=== PATIENT | male | born 1950 | race Caucasian/White ===

== ENCOUNTER 2016-11-07 10:35 | Emergency (ER) | payer MEDICARE ==
[~2016-11-07] VITALS: Ht 170.2 cm; Wt 91.6 kg
[~2016-11-07 10:35] MED LIST: ASPI-482 PO; CARV12.52 PO; ENAL5TAB PO; HYDR25TA9 PO; LOVA40TA2 PO; OXYC-323 PO; TAMS0.4C2 PO; TAMS0.4C97 PO
[2016-11-07] MEDS ORDERED: IV NORMAL SALINE 500ML BAG 500 ML IV ONE (12:15)
--- NOTE | 2016-11-07 12:26 | PHYS DOC ---
Past Medical History Past Medical History: CAD, High Cholesterol, Heart Disease, Hypertension, ND, Other Additional Past Medical Histor: prostate problem Past Surgical History: Angioplasty, Coronary Bypass Surgery Additional Past Surgical Histo: multiple stents placed, HEART CATH, ANGIOPLASTY Alcohol Use: None Drug Use: None Adult General Chief Complaint Chief Complaint: COUGH HPI HPI Patient is a 66 year old male complaining of being sick for about 6 days. He has had diarrhea frequently, no vomiting but has had anorexia. He's been coughing like crazy. He is not really short of breath. Denies chest pain. Today he had a spell where he was very sweaty and felt faint. He was concerned because he's had a three-vessel CABG in about 2007. 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 He takes one for cholesterol, a water pill, 2 blood pressure medicines, and aspirin 81 mg. Review of Systems Review of Systems Constitutional: He has not particularly had fever or chills. Eyes: Denies change in visual acuity, redness, or eye pain [] HENT: Denies nasal congestion or sore throat [] Respiratory: As in history of present illness Cardiovascular: Denies chest pain GI: As in history of present illness : Denies dysuria or hematuria [] Musculoskeletal: Denies back pain or joint pain [] Integument: Denies rash or skin lesions [] Neurologic: Denies headache, focal weakness or sensory changes [] Current Medications Current Medications Current Medications Medications (Trade) Dose Ordered Sig/Ijeoma Start Time Stop Time Status Last Admin Dose Admin Potassium Chloride (KCl Oral Soln) 40 meq 1X ONCE 11/07/16 14:00 11/07/16 14:01 DC 11/07/16 14:08 40 MEQ Sodium Chloride (Iv Sodium Chloride 0.9% 500ml Bag) 500 ml @ 500 mls/hr 1X ONCE 11/07/16 12:15 11/07/16 13:14 DC 11/07/16 12:59 500 MLS/HR Allergies Allergies Allergies Coded Allergies Type Severity Reaction Last Updated Verified No Known Drug Allergies 12/17/13 No Physical Exam Physical Exam Constitutional: Well developed, well nourished, no acute distress, non-toxic appearance. No cough or dyspnea noted. HENT: Normocephalic, atraumatic, bilateral external ears normal, nose normal. [ ] Eyes: conjunctiva normal, no discharge. [] Neck: Normal range of motion, no stridor. [] Cardiovascular:Heart rate regular rhythm, no murmur [] Lungs & Thorax: Bilateral breath sounds clear to auscultation [] Abdomen: Bowel sounds normal, soft, no tenderness, no masses, no pulsatile masses. [] Skin: Warm, dry, no erythema, no rash. [] Extremities: No tenderness, no cyanosis, no clubbing, ROM intact, no edema. [] Neurologic: Alert and oriented X 3, normal motor function, normal sensory function, no focal deficits noted. [] Current Patient Data Vital Signs Vital Signs Date Time Temp Pulse Resp B/P Pulse Ox O2 Delivery O2 Flow Rate FiO2 11/07/16 13:00 62 21 90/63 94 11/07/16 11:30 Room Air 11/07/16 11:12 97.8 97.8 Lab Values Laboratory Tests Test 11/07/16 11:20 11/07/16 13:42 White Blood Count 5.9x10^3/uL (4.0-11.0) Red Blood Count 5.08x10^6/uL (4.30-5.70) Hemoglobin 16.2g/dL (13.0-17.5) Hematocrit 46.1% (39.0-53.0) Mean Corpuscular Volume 91fL (79-100) Mean Corpuscular Hemoglobin 32pg (25-35) Mean Corpuscular Hemoglobin Concent 35g/dL (31-37) Red Cell Distribution Width 13.4% (11.5-14.5) Platelet Count 240x10^3/uL (140-400) Neutrophils (%) (Auto) 62% (31-73) Lymphocytes (%) (Auto) 22% (24-48) L Monocytes (%) (Auto) 11% (0-9) H Eosinophils (%) (Auto) 4% (0-3) H Basophils (%) (Auto) 0% (0-3) Neutrophils # (Auto) 3.7x10^3uL (1.8-7.7) Lymphocytes # (Auto) 1.3x10^3/uL (1.0-4.8) Monocytes # (Auto) 0.7x10^3/uL (0.0-1.1) Eosinophils # (Auto) 0.2x10^3/uL (0.0-0.7) Basophils # (Auto) 0.0x10^3/uL (0.0-0.2) Sodium Level 141mmol/L (136-145) Potassium Level 3.1mmol/L (3.5-5.1) L Chloride Level 101mmol/L (98-107) Carbon Dioxide Level 29mmol/L (21-32) Anion Gap 11 (6-14) Blood Urea Nitrogen 16mg/dL (8-26) Creatinine 1.3mg/dL (0.7-1.3) Estimated GFR (Cockcroft-Gault) 55.4 Glucose Level 128mg/dL (70-99) H Calcium Level 8.7mg/dL (8.5-10.1) Magnesium Level 1.9mg/dL (1.8-2.4) Total Bilirubin 0.4mg/dL (0.2-1.0) Direct Bilirubin < 0.1mg/dL (0.0-0.2) Aspartate Amino Transferase (AST) 30U/L (15-37) Alanine Aminotransferase (ALT) 33U/L (16-63) Alkaline Phosphatase 61U/L (46-116) Creatine Kinase 95U/L (39-308) Creatine Kinase MB (Mass) < 0.5ng/mL (0.0-3.6) Creatine Kinase MB Relative Index % (0-4) Troponin I Quantitative < 0.017ng/mL (0.000-0.055) JF-Nqh-C-Type Natriuretic Peptide 127pg/mL (0-124) H Total Protein 7.6g/dL (6.4-8.2) Albumin 3.5g/dL (3.4-5.0) Urine Collection Type Unknown Urine Color Jeannie Urine Clarity Clear Urine pH 6.0 Urine Specific [place] 1.025 Urine Protein Negativemg/dL (NEG-TRACE) Urine Glucose (UA) Negativemg/dL (NEG) Urine Ketones (Stick) Negativemg/dL (NEG) Urine Blood Negative (NEG) Urine Nitrite Negative (NEG) Urine Bilirubin Small (NEG) Urine Urobilinogen Dipstick 0.2mg/dL (0.2 mg/dL) Urine Leukocyte Esterase Negative (NEG) Urine RBC 0/HPF (0-2) Urine WBC 1-4/HPF (0-4) Urine Bacteria 0/HPF (0-FEW) Urine Hyaline Casts Many/HPF Urine Mucus Marked/LPF Laboratory Tests 11/07/16 11:20 Laboratory Tests 11/07/16 11:20 EKG EKG 12-lead EKG read by me. Sinus rhythm. Heart rate 64. There are no acute ST or T wave changes indicative of ischemia or infarction. No STEMI. 1234 [] Radiology/Procedures Radiology/Procedures Chest x-ray read by the radiologist no acute findings. [] Course & Med Decision Making Course & Med Decision Making Pertinent Labs and Imaging studies reviewed. (See chart for details) 66-year-old male with a history of coronary artery disease and bypass presents with about a 6 day history of mostly diarrhea and cough. Today he had episode of diaphoresis and lightheadedness, he may be a bit dehydrated. Advised him that we will start with some testing and some IV fluids and he is agreeable to that plan. Labs remarkable for mild hypokalemia and mildly dehydrated. Patient had 500 mL NS IV in the ED. He had no vomiting or diarrhea here. I discussed with the patient plenty of fluids, bananas for potassium, Gatorade, rest until improved. [] Dragon Disclaimer Dragon Disclaimer This electronic medical record was generated, in whole or in part, using a voice recognition dictation system. Departure Departure Impression: Primary Impression: Viral gastroenteritis Additional Impression: Mild dehydration Disposition: 01 HOME, SELF-CARE Condition: STABLE Referrals: NO PCP (PCP) Patient Instructions: Viral Gastroenteritis, [id number] Additional Instructions: Drink plenty of fluids, Gatorade, eat bananas to replace potassium. Problem Qualifiers HORACIO DOUGLAS MD Nov 07, 2016 12:26
[2016-11-07 12:27] LABS: BASO % 0 % (0-3); EOS % 4 % (0-3); HEMATOCRIT 46.1 % (39.0-53.0); HEMOGLOBIN 16.2 g/dL (13.0-17.5); LYMPH # 1.3 x10^3/uL (1.0-4.8); LYMPH % 22 % (24-48); MEAN CORPUSCULAR HEMOGLOBIN 32 pg (25-35); MEAN CORPUSCULAR HGB CONC 35 g/dL (31-37); MEAN CORPUSCULAR VOLUME 91 fL (79-100); MONO % 11 % (0-9); NEUT % 62 % (31-73); PLATELET COUNT 240 x10^3/uL (140-400); RED BLOOD COUNT 5.08 x10^6/uL (4.30-5.70); RED CELL DISTRIBUTION WIDTH 13.4 % (11.5-14.5); WHITE BLOOD COUNT 5.9 x10^3/uL (4.0-11.0)
--- NOTE | 2016-11-07 12:33 | RAD ---
Indication: Cough. Time of exam 12:12 PM Correlation is made with prior study 10/10/2011. Changes of median sternotomy and CABG are noted. Lungs do show some hyperinflation. The pulmonary vascularity is normal. No infiltrates are detected. No effusion or pneumothorax is seen. Impression: Status post CABG and hyperinflation. No acute feature is detected.
[2016-11-07 12:47] LABS: BLOOD UREA NITROGEN 16 mg/dL (8-26); CALCIUM 8.7 mg/dL (8.5-10.1); CREATININE 1.3 mg/dL (0.7-1.3); GLUCOSE 128 mg/dL (70-99)
[2016-11-07 12:48] LABS: ANION GAP 11 (6-14); CARBON DIOXIDE 29 mmol/L (21-32); CHLORIDE 101 mmol/L (98-107); GFR 55.4; POTASSIUM 3.1 mmol/L (3.5-5.1); SODIUM 141 mmol/L (136-145)
[2016-11-07 12:53] LABS: ALBUMIN 3.5 g/dL (3.4-5.0); ALK PHOS 61 U/L (46-116); ALT (SGPT) 33 U/L (16-63); AST (SGOT) 30 U/L (15-37); DIRECT BILIRUBIN < 0.1 mg/dL (0.0-0.2); MAGNESIUM 1.9 mg/dL (1.8-2.4); TOTAL BILIRUBIN 0.4 mg/dL (0.2-1.0); TOTAL PROTEIN 7.6 g/dL (6.4-8.2)
[2016-11-07 13:12] LABS: CKMB MASS < 0.5 ng/mL (0.0-3.6); CREATINE KINASE 95 U/L (39-308)
[2016-11-07 13:58] LABS: BILIRUBIN,URINE SMALL (NEG); GLUCOSE,URINE NEGATIVE (NEG); NITRITE,URINE NEGATIVE (NEG); PROTEIN,URINE NEGATIVE (NEG-TRACE); UROBILINOGEN,URINE 0.2 mg/dL (0.2 mg/dL)
[2016-11-07 14:00] VITALS: BP 121/67
[2016-11-07] MEDS ORDERED: POTASSIUM CHLORIDE 20 MEQ/15 ML ORAL LIQUID. PO ONE (14:00)
[2016-11-07 14:10] LABS: BACTERIA,URINE 0 /HPF (0-FEW); RBC,URINE 0 /HPF (0-2)
--- NOTE | 2016-11-08 06:01 | EKG ---
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
== END 2016-11-07 14:20 | disposition home or self-care (01) ==
LOC: ER 10:35
DX: A08.4 Viral intestinal infection, unspecified (principal); E86.0 Dehydration; I25.2 Old myocardial infarction; I10 Essential (primary) hypertension; I25.10 Atherosclerotic heart disease of native coronary artery without angina pectoris; E78.00 Pure hypercholesterolemia, unspecified; Z95.1 Presence of aortocoronary bypass graft
CPT/HCPCS: 36415; 71020; 80048; 80076; 81001; 82553; 83735; 83880; 84484; 85027; 93005; 96360; 99285; J7040

== ENCOUNTER → 2017-08-07 | Outpatient (CLI) | payer MEDICARE ==
[2017-08-07 14:59] LABS: FOLATE 19.08 ng/ml (3.2-20.0)
[2017-08-09 13:22] LABS: ALPHA 1 0.2 g/dL (0.0-0.4); ALPHA 2 0.7 g/dL (0.4-1.0); BETA 1.3 g/dL (0.7-1.3); GAMMA 1.1 g/dL (0.4-1.8); M-SPIKE Not Observed g/dL (Not Observed); PROTEIN TOTAL 7.2 g/dL (6.0-8.5)
== END | disposition home or self-care (01) ==
LOC: LAB 14:03
PROVIDERS: ATTEND Psychiatry & Neurology Neurology with Special Qualifications in Child Neurology
DX: R26.9 Unspecified abnormalities of gait and mobility (principal); R41.3 Other amnesia; R20.0 Anesthesia of skin
CPT/HCPCS: 36415; 82607; 82746; 84165; 84443; 85651

== ENCOUNTER → 2017-08-15 | Outpatient (CLI) | payer MEDICARE ==
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
== END | disposition home or self-care (01) ==
LOC: KCIC MRI 09:11
PROVIDERS: ATTEND Psychiatry & Neurology Neurology with Special Qualifications in Child Neurology
DX: S09.8XXD Other specified injuries of head, subsequent encounter (principal); R32 Unspecified urinary incontinence; R41.3 Other amnesia; R20.0 Anesthesia of skin; X58.XXXD Exposure to other specified factors, subsequent encounter
CPT/HCPCS: 70551

== ENCOUNTER → 2018-10-29 | Outpatient (CLI) | payer MEDICARE ==
[~2018-10-29] MED LIST changes: +CARV12.511 PO; -CARV12.52 PO; +HYDR-2145 PO; -HYDR25TA9 PO; -OXYC-323 PO; +OXYC1TAB15 PO; +REGADENOSON 0.4 MG/5 ML DISP.SYRIN. IV ONE
--- NOTE | 2018-10-29 11:32 | CARD ---
MR#: [id number] Date of Study: 10/29/2018 Ordering Physician: RUBY KERR, Referring Physician: RUBY KERR Tech: Jacklyn Alfred RDCS APPROVED REPORT EXAM: Two-dimensional and M-mode echocardiogram with Doppler and color Doppler. Other Information Quality : GoodHR: 78bpm Rhythm : PVC's INDICATION CAD 2D DIMENSIONS RVDd2.8 (2.9-3.5cm)Left Atrium(2D)4.3 (1.6-4.0cm) IVSd1.0 (0.7-1.1cm)Aortic Root(2D)3.4 (2.0-3.7cm) LVDd6.2 (3.9-5.9cm)LVOT Diameter2.1 (1.8-2.4cm) PWd0.9 (0.7-1.1cm)LVDs5.1 (2.5-4.0cm) FS (%) 18.0 %SV71.4 ml LVEF(%)36.7 (>50%) M-Mode DIMENSIONS Left Atrium(MM)4.58 (2.5-4.0cm)Aortic Root3.51 (2.2-3.7cm) Aortic Valve AoV Peak Valentín.101.8cm/sAoV VTI18.1cm AO Peak GR.4.1mmHgLVOT Peak Valentín.90.0cm/s AO Mean GR.2mmHgAVA (VMAX)3.07cm2 ARSALAN (VTI)3.00cm2 Mitral Valve MV E Ktoqvofx35.9cm/sMV DECEL VHZF228zn MV A Okroitrt44.8cm/sE/A Ratio0.9 MV A Ephguvro510ul Pulmonary Valve PV Peak Rpsluixx788.9cm/s LEFT VENTRICLE The Left Ventricle is mildly dilated. There is normal left ventricular wall thickness. The systolic f unction is moderately impaired. The Ejection Fraction is 40%. There is global hypokinesis of the left ventricle. Septal motion suggestive of conduction defect. Transmitral Doppler flow pattern is Grade I-abnormal relaxation pattern. RIGHT VENTRICLE The right ventricle is normal size. There is normal right ventricular wall thickness. The right ventr icular systolic function is normal. ATRIA The left atrium is mildly dilated. The right atrium size is normal. The interatrial septum is intact with no evidence for an atrial septal defect or patent foramen ovale as noted on 2-D or Doppler imagi ng. AORTIC VALVE The aortic valve is mildly thickened. The aortic valve is trileaflet. Doppler and Color Flow revealed no significant aortic regurgitation. There is no significant aortic valvular stenosis. MITRAL VALVE The mitral valve is normal in structure and function. There is no evidence of mitral valve prolapse. There is no mitral valve stenosis. Doppler and Color-flow revealed mild mitral regurgitation. TRICUSPID VALVE The tricuspid valve is normal in structure and function. Doppler and Color Flow revealed no tricuspid valve regurgitation noted. There is no tricuspid valve prolapse or vegetation. There is no tricuspid valve stenosis. PULMONIC VALVE The pulmonary valve is normal in structure and function. Doppler and Color Flow revealed trace pulmon ic valvular regurgitation. There is no pulmonic valvular stenosis. GREAT VESSELS The aortic root is normal in size. The ascending aorta is normal in size. The IVC is normal in size a nd collapses >50% with inspiration. PERICARDIAL EFFUSION There is no evidence of significant pericardial effusion. Critical Notification Critical Value: No <Conclusion> The systolic function is moderately impaired. The Ejection Fraction is 40%. There is global hypokinesis of the left ventricle. Septal motion suggestive of conduction defect. Signed by : Samir Butler, Electronically Approved : 10/29/2018 11:29:59
--- NOTE | 2018-10-29 11:45 | RAD ---
MR#: [id number] Date of Study: 10/29/2018 Ordering Physician: RUBY KERR, Referring Physician: NOEMÍ PARADA Tech: KEYSHA Hardy APPROVED REPORT Test Type: Pharmacological Stress Nurse/Tech: Nikky Stone R.N./Patrica Winkler RN Test Indications: CAD Cardiac History: Hypertension, CABG x3, Stents, PA Medications: See Electronic Medical Record Medical History: See Electronic Medical Record Resting ECG: SR with rare PVC Resting Heart Rate: 67 bpm Resting Blood Pressure: 164/89mmHg Pretest Chest Pain: No chest pain Nurse/Tech Notes S1S2, Lungs CTA Consent: The procedure was explained to the patient in lay terms. Informed consent was witnessed. Jefry eout was entered into [employer]. History and Stress Test performed by Augusta Cheek R.N./Patrica cardoza RN Pharm. Details Pharmacologic stress testing was performed using 0.4mg per 5ml of regadenoson given intravenously ove r 7-10 seconds. Stress Symptoms Dyspnea, Lightheaded POST EXERCISE Reason for Termination: Infusion complete Max HR: 98 bpm Max Blood Pressure: 151/91mmHg Blood Pressure response to exercise: Normal blood pressure response during stress. Chest Pain: No. Arrhythmia: No. ST Change: No. INTERPRETATION Stress EKG Conclusion: No evidence of stress induced EKG changes. Imaging Protocol IMAGE PROTOCOL: Rest Tc-99m/stress Tc-99m 1 day Rest: Stress: Viability: Radiopharm.Tc99m GerypnsjvVu58q Sestamibi Dose10.8mCi 32mCi Duration 15min. 13min. Img Date 10/29/2018 10/29/2018 Inj-Img Kbnf94cov. 60min. Rest Admin Site:IV - Right AntecubitalAdministrator:YAAKOV Lu, ARRT (R)(N) Stress Admin Site: IV - Right AntecubitalAdministrator: YAAOKV Lu, ARRT (R)(N) STRESS DATA End Diast. Vol.149.0mlLVEDV index BSA71.0ml End Syst. Vol.77.0mlLVESV index BSA37.0ml Myocardial Kjva695.0gEject. Gdpwcdxm47.0% Stress Scores Regional WT3.00Summed WT37.00 Regional WM0.00Summed WM22.00 LV Perfusion There is a large sized lateral, basal anterior FIXED defect suggestive of prior infarct without ische marcella. There is a large sized inferior basal to distal FIXED defect suggestive of prior infarct without isch emia. Wall Motion Mild to moderate global hypokinesis. EF 45% LV Perf. Quant 17 Seg. SSS25.00 17 Seg. SRS28.00 17 Seg. SDS1.00 Stress Defect Extent (% LAD)23.80Rest Defect Extent (% LAD)25.00Rev. Defect Extent (% LAD)0.00 Stress Defect Extent (% LCX) 81.30Rest Defect Extent (% LCX)90.00Rev. Defect Extent (% LCX)11.30 Stress Defect Extent (% RCA)21.10Rest Defect Extent (% RCA)25.60Rev. Defect Extent (% RCA)0.00 Stress Defect Extent (% VIGNESH)42.60Rest Defect Extent (% VIGNESH)45.20Rev. Defect Extent (% VIGNESH)5.20 Other Information Quality:Fair Risk Assessment: Moderate-High Risk Conclusion 1. No evidence of stress induced EKG changes. 2. Large FIXED anterior/lateral/inferior defect with mild vicki-infarct ischemia. 3. Mild to moderate LV dysfunction. EF 45% 4. Moderate to high risk for future CV events due to low EF and prior infarct. No significant ischemi a. Signed by : Samir Butler, Electronically Approved : 10/29/2018 11:42:39
== END | disposition home or self-care (01) ==
LOC: ECHO 07:36
PROVIDERS: ATTEND Internal Medicine Cardiovascular Disease
DX: I25.10 Atherosclerotic heart disease of native coronary artery without angina pectoris (principal); I25.2 Old myocardial infarction; I11.9 Hypertensive heart disease without heart failure; I34.0 Nonrheumatic mitral (valve) insufficiency; R00.8 Other abnormalities of heart beat; Z95.1 Presence of aortocoronary bypass graft
CPT/HCPCS: 78452; 93017; 93306; 96374; A9500; J2785

== ENCOUNTER 2018-11-11 07:56 | Outpatient (CLI) | payer MEDICARE ==
[2018-11-11] VITALS (11 sets, daily range): BP systolic 110–139; BP diastolic 70–87
[~2018-11-11] VITALS: Ht 172.7 cm; Wt 95.3 kg
[~2018-11-11 07:56] MED LIST changes: -REGADENOSON 0.4 MG/5 ML DISP.SYRIN. IV ONE
[2018-11-11 08:41] LABS: HEMATOCRIT 44.7 % (39.0-53.0); HEMOGLOBIN 15.5 g/dL (13.0-17.5); RED BLOOD COUNT 4.86 x10^6/uL (4.30-5.70); RED CELL DISTRIBUTION WIDTH 13.5 % (11.5-14.5); WHITE BLOOD COUNT 6.6 x10^3/uL (4.0-11.0)
[2018-11-11 08:47] LABS: CALCIUM 9.1 mg/dL (8.5-10.1); CREATININE 0.9 mg/dL (0.7-1.3); GFR 84.2; POTASSIUM 3.2 mmol/L (3.5-5.1)
[2018-11-11 08:52] LABS: PROTHROMBIN TIME PATIENT 12.7 SEC (11.7-14.0)
[2018-11-11] MEDS ORDERED: LIDOCAINE 1% PF 2 ML VIAL. ONE (09:08)
[2018-11-11] MEDS ORDERED: IODIXANOL 320 MG/ML 100 ML VIAL. ONE ×2 (09:08→10:09)
[2018-11-11] MEDS ORDERED: LIDOCAINE 1% Multi-Dose 20 ML VIAL. ONE (09:16)
[2018-11-11] MEDS ORDERED: fentaNYL PF VIAL 100 MCG/2 ML VIAL ONE (09:19)
[2018-11-11] MEDS ORDERED: MIDAZOLAM HCL/PF 2 MG/2 ML VIAL. ONE (09:19)
[2018-11-11] MEDS ORDERED: MIDAZOLAM HCL/PF 2 MG/2 ML VIAL. IV ONE (09:30)
[2018-11-11] MEDS ORDERED: LIDOCAINE 1% Multi-Dose 20 ML VIAL. INJ ONE (09:30)
[2018-11-11] MEDS ORDERED: IODIXANOL 320 MG/ML 100 ML VIAL. IART ONE (09:30)
[2018-11-11] MEDS ORDERED: fentaNYL PF VIAL 100 MCG/2 ML VIAL IV ONE (09:30)
[2018-11-11] MEDS ORDERED: CONTRAST GIVEN. MC PRN (09:45)
[2018-11-11] MEDS ORDERED: BIVALIRUDIN 250 MG VIAL. IV ONE ×2 (10:03→10:15)
[2018-11-11] MEDS ORDERED: NITROGLYCERIN 200 MCG/2 ML SYRINGE FOR CATH/VASC LAB. ONE (10:23)
[2018-11-11] MEDS ORDERED: NITROGLYCERIN 200 MCG/2 ML SYRINGE FOR CATH/VASC LAB. IART ONE (10:30)
[2018-11-11] MEDS ORDERED: ASPIRIN 325 MG TABLET PO ONE (10:45)
[2018-11-11] MEDS ORDERED: CLOPIDOGREL BISULFATE 75 MG TABLET PO ONE (10:45)
--- NOTE | 2018-11-11 10:54 | PDOC ---
MODERATE SEDATION ASSESSMENT RISKS/ALTERNATIVES Risks/Alternatives Risks and alternatives of this type of sedation and procedure discussed with: RISK/ALTERNATIVES: Patient H & P ON CHART H & P H & P on chart and reviewed for co-morbid conditions and appropriate labs. H&P ON CHART: Yes STATUS PREG STATUS ASSESSED: N/A MEDS/ALLERGIES REVIEWED Meds/Allergies Reviewed Medications and Allergies including time and route of recently administered narcotics and sedatives. MEDS/ALLERGIES REVIEWED: Yes ASA RATING ASA RATING: III AIRWAY ASSESSMENT Airway Assessment Airway patency, oral function limitations, presence of caps, crowns, dentures, partials, and ability to extend neck assessed. AIRWAY ASSESSMENT: Yes MALLAMPATI SCORE MALLAMPATI SCORE: II PRE-SEDATION ASSESSMENT PRE-SEDATION ASSESSMENT: Yes RUBY KERR MD Nov 11, 2018 10:54
[2018-11-11] MEDS ORDERED: IV 1/2 NORMAL SALINE 1,000 ML IV SCH (10:55)
--- NOTE | 2018-11-11 11:16 | CARD ---
MR#: [id number] Date of Study: 11/11/2018 Ordering Physician: RUBY RICHARDSON, Referring Physician: RUBY RICHARDSON Tech: RT Jose (Rancho) RUPESH APPROVED REPORT Technologist: RT Jose (R) RUPESH Nurse: mehrdad Procedure(s) performed: 1. Left heart catheterization, selective coronary angiography, selective ang iography of the bypass grafts and left ventriculography 2. Successful cutting balloon angioplasty to in-stent restenosis involving the right coronary artery Moderate sedation: 70 minutes INDICATION The indication(s) include : Cardiomyopathy, positive stress test. PROCEDURE NARRATIVE After explaining the risks, benefits and alternative options, informed consent was obtained from vika ent. 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 18 mL of 2% lidocaine was infiltrated into the skin and subcutaneous tissues for local a nesthesia. Arterial access was obtained in the right common femoral artery and a 6 Danish sheath was inserted. 6 Danish JL4 and 6 Danish JR4 catheters placed to perform selective angiography of the left and right coronary arteries. The 6 Danish JR4 catheter was then used to perform selective angiograph y of the radial artery graft to the diagonal branch, saphenous vein graft to the obtuse marginal bran ch and the left internal mammary artery graft to the left anterior descending artery. 6 Danish pigtai l catheter was used to perform left ventriculography. The following findings were noted. FINDINGS 1. Hemodynamics: Left ventricle end-diastolic pressure 16 mmHg. No pullback gradient across the aort ic valve. 2. Left ventriculography: Severe left ventricle systolic dysfunction and akinetic diaphragmatic wal l with ejection fraction estimated at 25%. 2+ mitral regurgitation seen. 3. Coronary and bypass graft angiography: a. The left main coronary artery arose from the left sinus of Valsalva, gave rise to the left anteri or descending and left circumflex arteries and did not show any significant stenosis. b. The left anterior descending artery showed 90% stenosis in the proximal segment followed by 100% chronic occlusion in the midsegment. c. The left circumflex artery showed 100% chronic total occlusion in the proximal to midsegment. d. The right coronary artery showed long stented proximal, mid and distal segments. There is 70% in- stent restenosis in the midsegment and 90% in-stent restenosis in the distal segment. e. The left internal mammary artery graft to the left anterior descending artery was widely patent. Distal to the anastomosis, the round valley left anterior descending artery did not show any significant st enosis. f. The radial artery graft to the diagonal branch showed 30% stenosis in the proximal segment. g. The saphenous vein graft to the obtuse marginal branch of left circumflex artery did not show any significant stenosis. INTERVENTION The right coronary artery was engaged with a 6 Danish JR4 guide catheter. The in-stent restenoses in the mid and distal segments were crossed with a 0.014 inch [employer] water guidewire. These were dila edgar successfully with a 2.5 x 12 mm trek balloon and a 2.75 x 10 mm [employer] flextom cutting balloon. Follow-up angiography showed resolution of the stenoses with BARB-3 distal flow. Patient to lerated the procedure well. Hemostasis in the right groin was achieved using mynx closure device per there were no immediate complications. Conclusion 1. Severe [place] valley vessel coronary artery disease s/p CABG as described above with patent WILLIAM to LAD, patent radial artery graft to the diagonal branch and patent SVG to OM/LCx. Significant in-stent res tenosis was noted within the round valley right coronary artery that was successfully angioplastied with a cutting balloon. 2. Severe left ventricle systolic dysfunction and akinetic diaphragmatic wall with ejection fraction estimated at 25% Recommendations Optimization of medical therapy for severe ischemic cardiomyopathy and repeat 2-D echo in 3 months to evaluate the need for AICD implantation. Signed by : Ruby Richardson, Electronically Approved : 11/11/2018 11:14:30
[2018-11-11] MEDS ORDERED: ACETAMINOPHEN 325 MG TABLET. PO ONE ×2 (13:45→14:30)
--- NOTE | 2018-11-11 14:23 | NUR ---
Discharge Note: RACHAEL KELLY [facility] Discharge instructions and discharge home medications reviewed with Patient and a copy given. All questions have been answered and understanding verbalized. The following instructions and handouts were given: moderate sedation and groin site care Discontinued lines and drains: Peripheral IV intact. Patient discharged to Home or Self Care withFamily Membervia Wheelchair
[2018-11-12] MEDS ORDERED: CLOPIDOGREL BISULFATE 75 MG TABLET PO SCH (08:00)
[2018-11-12] MEDS ORDERED: ASPIRIN ENTERIC COATED 325 MG TABLET.DR. PO SCH (08:00)
== END 2018-11-11 14:35 | disposition home or self-care (01) ==
LOC: CCL 07:56
PROVIDERS: ATTEND Internal Medicine Cardiovascular Disease
DX: I25.10 Atherosclerotic heart disease of native coronary artery without angina pectoris (principal); I25.82 Chronic total occlusion of coronary artery; I25.5 Ischemic cardiomyopathy; I10 Essential (primary) hypertension; E78.5 Hyperlipidemia, unspecified; N40.0 Benign prostatic hyperplasia without lower urinary tract symptoms; Z95.1 Presence of aortocoronary bypass graft; Z79.82 Long term (current) use of aspirin; Z79.899 Other long term (current) drug therapy
CPT/HCPCS: 36415; 80048; 85027; 85610; 92920; 93458; 99152; 99153; C1713; C1725; C1769; C1892; J0583; J1644; J2250; J3010; J3490; Q9967; G0269

== ENCOUNTER → 2018-12-26 | Outpatient (CLI) | payer MEDICARE ==
[2018-11-11 14:00] VITALS: BP 138/80
--- NOTE | 2018-12-26 17:52 | RAD ---
MR#: [id number] Date of Study: 12/26/2018 Ordering Physician: RUBY KERR, Referring Physician: RUBY KERR, Tech: Alexis Carlisle MBA, RDMS, RVT, RDCS, RTR APPROVED REPORT Patient Location: OUT-PATIENT Indications Rest Pain:Bilaterally VELOCITY AND DOPPLER WAVEFORM ANALYSIS RIGHT cm/secWaveformSeverity LEFT cm/secWaveform Severity dCFA 112.0TriphasicdCFA 109.0Triphasic Prof Fem Art. 71.0BiphasicProf Fem Art. 53.0Biphasic Fem Art Prox. 114.0TriphasicFem Art Prox. 106.0Triphasic Fem Art Mid. 114.0TriphasicFem Art Mid. 113.0Triphasic Fem Art Dist. 113.0TriphasicFem Art Dist. 82.0Triphasic Pop Art(Fossa) 72.0TriphasicPop Art(AK) 83.0Triphasic WEATHERSTRIP MACHINE OPERATOR Prox. 93.0TriphasicPTA Prox. 65.0Triphasic WEATHERSTRIP MACHINE OPERATOR Dist. 87.0TriphasicPTA Dist. 113.0Monophasic Per Art Mid. 87.0TriphasicPer Art Mid. 78.0Triphasic CAN Prox. 113.0MonophasicATA Prox. 74.0Triphasic DPA 89MonophasicDPA 30Monophasic Findings Grayscale images of the bilateral lower extremity arterial vessels reveals minimal atherosclerotic pl aque. Spectral waveforms and color Doppler of the bilateral common femoral, superficial femoral and poplite al vessels reveal normal triphasic wave patterns. Velocities are within normal limits in the below-kn ee vessels bilaterally. No focal high-grade stenosis is identified. Critical Notification Critical Value: No <Conclusion> No focal stenosis in the bilateral lower extremities with three-vessel runoff below the knee. Signed by : Samir Butler, Electronically Approved : 12/26/2018 17:51:44
== END | disposition home or self-care (01) ==
LOC: US 13:58
PROVIDERS: ATTEND Internal Medicine Cardiovascular Disease
DX: M79.604 Pain in right leg (principal); M79.605 Pain in left leg; R91.8 Other nonspecific abnormal finding of lung field
CPT/HCPCS: 93925

== ENCOUNTER 2019-02-08 05:52 | Emergency (ER) | payer OTHER, MEDICARE ==
[~2019-02-08] VITALS: Ht 172.7 cm; Wt 95.3 kg
[2019-02-08 05:54] VITALS: BP 163/98
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
== END 2019-02-08 07:30 | disposition home or self-care (01) ==
LOC: ER 05:52
DX: S13.8XXA Sprain of joints and ligaments of other parts of neck, initial encounter (principal); M54.6 Pain in thoracic spine; I11.9 Hypertensive heart disease without heart failure; I25.10 Atherosclerotic heart disease of native coronary artery without angina pectoris; I25.2 Old myocardial infarction; E78.00 Pure hypercholesterolemia, unspecified; Z95.5 Presence of coronary angioplasty implant and graft; V43.52XA Car driver injured in collision with other type car in traffic accident, initial encounter; Y93.89 Activity, other specified; Y92.410 Unspecified street and highway as the place of occurrence of the external cause; Y99.8 Other external cause status
CPT/HCPCS: 72040; 72072; 99284

== ENCOUNTER → 2019-03-04 | Outpatient (CLI) | payer MEDICARE ==
[2019-02-08 05:54] VITALS: BP 163/98
--- NOTE | 2019-03-04 11:40 | CARD ---
MR#: [id number] Date of Study: 03/04/2019 Ordering Physician: RUBY KERR, Referring Physician: RUBY KERR Tech: Vicky Caro RDCS APPROVED REPORT EXAM: Two-dimensional and M-mode echocardiogram with Doppler and color Doppler. Other Information Quality : Fair INDICATION Ischemic Cardiomyopathy 2D DIMENSIONS RVDd2.7 (2.9-3.5cm)Left Atrium(2D)4.3 (1.6-4.0cm) IVSd0.8 (0.7-1.1cm)Aortic Root(2D)3.3 (2.0-3.7cm) LVDd5.8 (3.9-5.9cm)LVOT Diameter2.4 (1.8-2.4cm) PWd0.8 (0.7-1.1cm)LVDs4.9 (2.5-4.0cm) FS (%) 14.2 %SV48.7 ml Aortic Valve AoV Peak Valentín.112.9cm/sAoV VTI22.6cm AO Peak GR.5.1mmHgLVOT Peak Valentín.90.0cm/s LVOT VTI 18.52cmAO Mean GR.3mmHg ARSALAN (VMAX)3.38no0JTK (VTI)3.82cm2 Mitral Valve MV E Vmyxzslg11.2cm/sMV DECEL QPYO031nr MV A Edzfsejc92.3cm/sMV PFP53wq E/A Ratio0.7MVA (PHT)2.69cm2 TDI E/Lateral E'8.7E/Medial E'8.4 Pulmonary Vein S1 Isypossv44.9cm/sD2 Bhjrxfhp24.6cm/s LEFT VENTRICLE The Left Ventricle is borderline dilated. There is normal left ventricular wall thickness. Left ventr icle systolic function is mildly impaired. The Ejection Fraction is estimated at 40%. There is mild g lobal hypokinesis of the left ventricle. Transmitral Doppler flow pattern is Grade I-abnormal relaxat ion pattern. RIGHT VENTRICLE The right ventricle is normal size. The right ventricular systolic function is normal. ATRIA The left atrium is mildly dilated. The right atrium size is normal. The interatrial septum is intact with no evidence for an atrial septal defect or patent foramen ovale as noted on 2-D or Doppler imagi ng. AORTIC VALVE The aortic valve is calcified but opens well. Doppler and Color Flow revealed no significant aortic r egurgitation. There is no significant aortic valvular stenosis. MITRAL VALVE The mitral valve is calcified but opens well. There is no evidence of mitral valve prolapse. There is no mitral valve stenosis. Doppler and Color-flow revealed trace to mild mitral regurgitation. TRICUSPID VALVE The tricuspid valve is normal in structure and function. Doppler and Color Flow revealed trace tricus pid valve regurgitation. There is no tricuspid valve stenosis. PULMONIC VALVE The pulmonic valve is not well visualized. Doppler and Color Flow revealed trace to mild pulmonic joseph vular regurgitation. There is no pulmonic valvular stenosis. GREAT VESSELS The aortic root is normal in size. The ascending aorta is normal in size. The IVC is normal in size a nd collapses >50% with inspiration. PERICARDIAL EFFUSION There is no evidence of significant pericardial effusion. Critical Notification Critical Value: No <Conclusion> The Left Ventricle is borderline dilated. Left ventricle systolic function is mildly impaired. The Ejection Fraction is estimated at 40%. There is mild global hypokinesis of the left ventricle. There is no significant aortic valvular stenosis. Doppler and Color Flow revealed no significant aortic regurgitation. Doppler and Color-flow revealed trace to mild mitral regurgitation. Doppler and Color Flow revealed trace tricuspid valve regurgitation. Signed by : Malcolm Chambers MD Electronically Approved : 03/04/2019 11:39:37
== END | disposition home or self-care (01) ==
LOC: ECHO 10:28
PROVIDERS: ATTEND Internal Medicine Cardiovascular Disease
DX: I08.8 Other rheumatic multiple valve diseases (principal); I25.5 Ischemic cardiomyopathy
CPT/HCPCS: 93306

== ENCOUNTER → 2019-11-20 | Outpatient (CLI) | payer OTHER, MEDICARE ==
--- NOTE | 2019-11-20 15:35 | KCIC ---
Left lower extremity venous duplex study Clinical History: Lower extremity pain Technique: Using a combination of real time ultrasound imaging and color-flow and pulse Doppler imaging techniques, including spectral analysis, graded compression and augmentation, duplex evaluation of the deep venous system of the left lower extremity was performed. Multiple images were obtained. Findings: There is no sonographic evidence of deep venous thrombosis involving the visualized deep venous structures of the left lower extremity Impression: No evidence of deep venous thrombosis involving the left lower extremity Electronically signed by: Syed Montanez MD (11/20/2019 3:32 PM) [facility]
== END | disposition home or self-care (01) ==
LOC: KCIC US 14:56
PROVIDERS: ATTEND Family Medicine
DX: M79.89 Other specified soft tissue disorders (principal)
CPT/HCPCS: 93971

== ENCOUNTER → 2019-11-26 | Outpatient (CLI) | payer OTHER, MEDICARE ==
--- NOTE | 2019-11-26 09:00 | KCIC ---
Examination: Ultrasound abdomen complete HISTORY: History of abdominal pain COMPARISON: None available. FINDINGS: The visualized pancreas grossly appears unremarkable. There is increased echogenicity identified in the liver likely hepatic steatosis. The common bile duct measures 3.9 mm in diameter. The right kidney measures 11.6 x 5.7 x 5.0 cm. The left kidney is 12.4 x 5.5 x 5.0 cm. 12.4 x 5.5 x 5.0 spleen grossly appears unremarkable. There is a cystic structure identified in the left kidney measuring 1.4 cm. IMPRESSION: 1. Hepatic steatosis. 2. 1.4 cm cyst left kidney. Electronically signed by: Viet Lewis MD (11/26/2019 8:57 AM) [facility]
== END | disposition home or self-care (01) ==
LOC: KCIC US 07:46
PROVIDERS: ATTEND Family Medicine
DX: K76.0 Fatty (change of) liver, not elsewhere classified (principal); N28.1 Cyst of kidney, acquired
CPT/HCPCS: 76700

== ENCOUNTER → 2019-12-03 | Outpatient (CLI) | payer OTHER, MEDICARE ==
--- NOTE | 2019-12-04 08:20 | RAD ---
Examination: KNEE LEFT 3V History: Acute left knee pain Comparison/Correlation: None Findings: Total of 3 images of the left knee were obtained. Surgical clip is present at the medial aspect of the left knee. Mild spurring involving medial compartment of the left knee is noted. No fracture or bone destruction. Minimal spurring about the patella. Small knee joint effusion is present. Minimal vascular calcification is present. Impression: Small joint effusion. Electronically signed by: Tomy Kerr MD (12/04/2019 8:17 AM) [facility]
== END | disposition home or self-care (01) ==
LOC: RAD 11:47
PROVIDERS: ATTEND Family Medicine
DX: M25.462 Effusion, left knee (principal); M76.892 Other specified enthesopathies of left lower limb, excluding foot; M25.862 Other specified joint disorders, left knee
CPT/HCPCS: 73562

== ENCOUNTER → 2020-03-10 | Outpatient (CLI) | payer OTHER ==
[~2020-03-10] MED LIST changes: +REGADENOSON 0.4 MG/5 ML DISP.SYRIN. IV ONE
--- NOTE | 2020-03-10 09:02 | CARD ---
MR#: [id number] Date of Study: 03/10/2020 Ordering Physician: RUBY RICHARDSON, Referring Physician: RUBY RICHARDSON, Tech: Phylicia Stephens APPROVED REPORT EXAM: Two-dimensional and M-mode echocardiogram with Doppler and color Doppler. Other Information Quality : AverageHR: 57bpm INDICATION Cardiac Disease: CAD RISK FACTORS Hypertension Hyperlipidemia 2D DIMENSIONS RVDd3.3 (2.9-3.5cm)Left Atrium(2D)4.0 (1.6-4.0cm) IVSd1.2 (0.7-1.1cm)Aortic Root(2D)3.4 (2.0-3.7cm) LVDd6.1 (3.9-5.9cm)LVOT Diameter2.1 (1.8-2.4cm) PWd1.0 (0.7-1.1cm)LVDs4.1 (2.5-4.0cm) FS (%) 32.6 %SV113.7 ml LVEF(%)60.0 (>50%) Aortic Valve AoV Peak Valentín.100.6cm/sAoV VTI20.8cm AO Peak GR.4.1mmHgLVOT Peak Valentín.68.2cm/s LVOT VTI 15.23cmAO Mean GR.3mmHg ARSALAN (VMAX)1.08de5GZG (VTI)2.48cm2 Mitral Valve MV E Qhrrimnq02.9cm/sMV DECEL [id number] MV A Uepeulnl14.1cm/sMV E Mean Gr.1mmHg MV HIT58yiH/A Ratio1.4 MVA (PHT)2.30cm2 TDI E/Lateral E'8.6E/Medial E'11.6 Pulmonary Valve PV Peak Mgiddxns157.4cm/sPV Peak Grad.4mmHg Pulmonary Vein S1 Mkqithfh85.8cm/sD2 Uqqtrzfv12.3cm/s PVa tzijyelt475qrdj LEFT VENTRICLE The Left Ventricle is borderline dilated. There is mild concentric left ventricular hypertrophy. The left ventricular systolic function is mildly impaired. The Ejection Fraction is 40-45%. There is mild global hypokinesis of the left ventricle. Transmitral Doppler flow pattern is Grade II-pseudonormal filling dynamics. RIGHT VENTRICLE The right ventricle is normal size. There is normal right ventricular wall thickness. The right ventr icular systolic function is normal. ATRIA The left atrium is borderline dilated. The right atrium size is normal. The interatrial septum is int act with no evidence for an atrial septal defect or patent foramen ovale as noted on 2-D or Doppler i maging. AORTIC VALVE The aortic valve is normal in structure and function. Doppler and Color Flow revealed no significant aortic regurgitation. There is no significant aortic valvular stenosis. MITRAL VALVE The mitral valve is normal in structure and function. There is no evidence of mitral valve prolapse. There is no mitral valve stenosis. Doppler and Color-flow revealed trace to mild mitral regurgitation . TRICUSPID VALVE The tricuspid valve is normal in structure and function. Doppler and Color Flow revealed trace tricus pid regurgitation. There is no tricuspid valve stenosis. PULMONIC VALVE The pulmonic valve is not well visualized. Doppler and Color Flow revealed trace pulmonic valvular re gurgitation. GREAT VESSELS The aortic root is normal in size. The IVC is normal in size and collapses >50% with inspiration. PERICARDIAL EFFUSION There is no evidence of significant pericardial effusion. Critical Notification Critical Value: No <Conclusion> The left ventricular systolic function is mildly impaired. The Ejection Fraction is 40-45%. Transmitral Doppler flow pattern is Grade II-pseudonormal filling dynamics. Trace to mild mitral regurgitation. Trace tricuspid regurgitation. There is no evidence of significant pericardial effusion. Signed by : Ruby Richardson, Electronically Approved : 03/10/2020 09:02:04
--- NOTE | 2020-03-10 12:17 | RAD ---
MR#: [id number] Date of Study: 03/10/2020 Ordering Physician: RUBY KERR Referring Physician: NOEMÍ PARADA Tech: RT Janneth Ho) (N) APPROVED REPORT Test Type: Pharmacological Stress Nurse/Tech: RT Vic (Rancho) (N) Test Indications: coronary artery disease Cardiac History: stents and CABG with 3 bypasses Medications: see EHR Medical History: hypertension Resting ECG: sinus rhythm Resting Heart Rate: 51 bpm Resting Blood Pressure: 135/80mmHg Pretest Chest Pain: None Nurse/Tech Notes Consent: The procedure was explained to the patient in lay terms. Informed consent was witnessed. Jefry eout was entered into [employer]. History and Stress Test performed by RT Janneth Ho) (N) Pharm. Details Pharmacologic stress testing was performed using 0.4mg per 5ml of regadenoson given intravenously ove r 7-10 seconds. Stress Symptoms short of breath POST EXERCISE Reason for Termination: Infusion complete Max HR: 86 bpm Max Blood Pressure: 125/68mmHg INTERPRETATION Stress EKG Conclusion: No acute changes were noted. Imaging Protocol IMAGE PROTOCOL: Rest Tc-99m/stress Tc-99m 1 day Rest: Stress: Viability: Radiopharm.Tc99m RmfuiucyxPw29h Sestamibi Dose10.6mCi 32.7mCi Duration 15min. 10min. Img Date 03/10/2020 03/10/2020 Inj-Img Jmar20wkz. 45min. Rest Admin Site:IV - Right AntecubitalAdministrator:RT Vic (Rancho)(N) Stress Admin Site: IV - Right AntecubitalAdministrator: RT Janneth Ho)(N) STRESS DATA End Diast. Vol.143.0mlAv. Heart Rate64.0bpm End Syst. Vol.67.0mlCO Index BSA4.9L/min Myocardial Zdsw756.0gEject. Qweggrzx15.0% Stress Rates Pk. Fill Rate1.61EDV/secLVtime Pk. Fill 139.33msec Pk. Empty Rate2.66ESV/secLVtime Pk. Clnki112.47msec 1/3 Pk. Fill1.03EDV/sec Stress Scores Regional WT3.00Summed WT28.00 Regional WM0.00Summed WM14.00 LV Perfusion There is a large sized, severe in intensity FIXED defect involving the basal to distal anterolateral, mid to distal lateral and distal inferolateral wall suggestive of prior infarct without any signific ant reversibility or viability noted in this territory. Wall Motion Moderate LV dysfunction with lateral wall hypokinesis. EF 45% LV Perf. Quant 17 Seg. SSS20.00 17 Seg. SRS18.00 17 Seg. SDS3.00 Stress Defect Extent (% LAD)23.80Rest Defect Extent (% LAD)16.30Rev. Defect Extent (% LAD)23.10 Stress Defect Extent (% LCX) 52.50Rest Defect Extent (% LCX)57.50Rev. Defect Extent (% LCX)3.80 Stress Defect Extent (% RCA)6.70Rest Defect Extent (% RCA)10.00Rev. Defect Extent (% RCA)0.00 Stress Defect Extent (% VIGNESH)32.00Rest Defect Extent (% VIGNESH)31.10Rev. Defect Extent (% VIGNESH)15.00 Other Information Quality:Average Risk Assessment: Moderate Risk Conclusion 1. No evidence of stress induced EKG changes. 2. Large fixed lateral wall defect as described above. 3. Mild LV dysfunction. EF 45% 4. Moderate risk for future CV events. Signed by : Samir Butler, Electronically Approved : 03/10/2020 12:16:24
== END | disposition home or self-care (01) ==
LOC: ECHO 07:36
PROVIDERS: ATTEND Internal Medicine Cardiovascular Disease
DX: I34.0 Nonrheumatic mitral (valve) insufficiency (principal); I11.9 Hypertensive heart disease without heart failure; I25.10 Atherosclerotic heart disease of native coronary artery without angina pectoris
CPT/HCPCS: 78452; 93017; 93306; A9500; J2785

== ENCOUNTER → 2020-10-24 | Outpatient (CLI) | payer OTHER ==
[~2020-10-24] MED LIST changes: -ENAL5TAB PO; +ENAL5TAB12 PO; -REGADENOSON 0.4 MG/5 ML DISP.SYRIN. IV ONE
== END ==
LOC: LAB 09:07
PROVIDERS: ATTEND Internal Medicine Cardiovascular Disease
DX: I25.10 Atherosclerotic heart disease of native coronary artery without angina pectoris (principal)
CPT/HCPCS: 36415; 80061

== ENCOUNTER → 2020-11-07 | Outpatient (CLI) | payer MEDICARE, OTHER ==
--- NOTE | 2020-11-07 12:35 | RAD ---
MR#: [id number] Date of Study: 11/07/2020 Ordering Physician: RUBY KERR, Referring Physician: RUBY KERR, Tech: Alexis Carlisle MBA, RDMS, RVT, RDCS, RTR APPROVED REPORT Patient Location: OUT-PATIENT Laterality:Bilateral Indications Bruit Doppler Spectral Velocity Analysis Right Left pCCA 78/16 cm/spCCA 102/27 cm/s mCCA 85/21 cm/smCCA 95/27 cm/s dCCA 88/26 cm/sdCCA 92/29 cm/s Bulb 74/19 cm/sBulb 62/11 cm/s ECA 113/ cm/sECA 92/ cm/s pICA 64/17 cm/spICA 72/19 cm/s Dayana 58/21 cm/smICA 66/19 cm/s dICA 65/23 cm/sdICA 52/19 cm/s Vert. 34/ cm/sVert. 29/ cm/s Subcl. 94/ cm/sSubcl. 90/ cm/s ICA/CCA 0.74ICA/CCA 0.71 Findings Grayscale images of the bilateral carotid vasculature demonstrates mild diffuse intimal hyperplasia. Based on velocity criteria there is overall 0 to less than 50% stenosis bilaterally in the internal carotid vessels. Normal ICA to CCA ratios are noted. Diminished but antegrade vertebral velocities are noted. Normal subclavian velocities are noted. No focal high-grade stenosis is identified. Critical Notification Critical Value: No <Conclusion> 1. No significant carotid vascular disease. Signed by : Samir Butler, Electronically Approved : 11/07/2020 12:34:51
== END ==
LOC: US 10:40
PROVIDERS: ATTEND Internal Medicine Cardiovascular Disease
DX: I65.23 Occlusion and stenosis of bilateral carotid arteries (principal); I25.10 Atherosclerotic heart disease of native coronary artery without angina pectoris
CPT/HCPCS: 93880

== ENCOUNTER → 2021-02-23 | Outpatient (CLI) | payer MEDICARE ==
--- NOTE | 2021-02-23 15:28 | KCIC ---
Indications: Left knee pain for 2 to 3 weeks. No known injury. Right foot pain for 2 days. 3 view study of the left knee: No acute fracture or dislocation or lytic process is seen. There is mi ld spurring without joint space narrowing of the medial tibiofemoral joint compartment. There is mild degenerative spurring of the patellofemoral joint compartment. Small left knee joint effusion is see n. There is a round soft tissue fullness of the popliteal fossa. This could represent a Fagan's cyst. IMPRESSION: No acute osseous abnormality. Possible Fagan's cyst. 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 Small left kn ee joint effusion. Three-view right foot study: No acute fracture or dislocation or lytic process is seen. No periosteal reaction is evident. Minimal degenerative spurring of the first metatarsal phalangeal joint is seen without significant joint space narrowing. There is a tiny plantar spur of the calcaneus. IMPRESSION: No acute osseous abnormality of the right foot. Electronically signed by: Lauro Manzo MD (02/23/2021 3:26 PM) [id number]
== END ==
LOC: KCIC 14:20
PROVIDERS: ATTEND Family Medicine
DX: M17.12 Unilateral primary osteoarthritis, left knee (principal); M25.462 Effusion, left knee; M77.31 Calcaneal spur, right foot
CPT/HCPCS: 73562; 73630

== ENCOUNTER 2021-03-08 11:27 | Emergency (ER) | payer MEDICARE ==
--- NOTE | 2021-03-08 14:07 | RAD ---
EXAM: Right foot, 3 views; right ankle, 3 views. HISTORY: Pain. Fall. COMPARISON: None. FINDINGS: 3 views of the right foot and ankle are obtained. There is no acute fracture, dislocation o r subluxation. The ankle mortise is intact. There is no osteochondral lesion. There is a tiny plantar spur. IMPRESSION: No acute osseous finding. Electronically signed by: Claudia Petersen MD (03/08/2021 2:05 PM) [id number]
[2021-03-08] MEDS ORDERED: ACETAMINOPHEN 500 MG TABLET PO ONE (14:15)
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
== END 2021-03-08 15:25 | disposition home or self-care (01) ==
LOC: ER 11:27
DX: S09.90XA Unspecified injury of head, initial encounter (principal); M25.571 Pain in right ankle and joints of right foot; M79.671 Pain in right foot; W18.39XA Other fall on same level, initial encounter; Y93.89 Activity, other specified; Y92.89 Other specified places as the place of occurrence of the external cause; Y99.8 Other external cause status
CPT/HCPCS: 70450; 72125; 73610; 73630; 99285-25

== ENCOUNTER → 2021-05-18 | Outpatient (CLI) | payer MEDICARE ==
--- NOTE | 2021-05-18 18:29 | CARD ---
MR#: [id number] Date of Study: 05/18/2021 Ordering Physician: RUBY KERR, Referring Physician: Gina PARADA: Jaleel Machado [facility] APPROVED REPORT EXAM: Two-dimensional and M-mode echocardiogram with Doppler and color Doppler. Other Information Quality : FairHR: 62bpm Rhythm : NSR INDICATION Cardiac Disease: CAD RISK FACTORS Hypertension Obesity Hyperlipidemia Family History 2D DIMENSIONS Left Atrium(2D)4.4 (1.6-4.0cm)IVSd0.9 (0.7-1.1cm) Aortic Root(2D)3.3 (2.0-3.7cm)LVDd6.6 (3.9-5.9cm) LVOT Diameter2.4 (1.8-2.4cm)PWd0.9 (0.7-1.1cm) LVDs5.8 (2.5-4.0cm)FS (%) 11.2 % SV52.2 ml Aortic Valve AoV Peak Valentín.99.1cm/sAoV VTI22.1cm AO Peak GR.3.9mmHgLVOT Peak Valentín.87.0cm/s AO Mean GR.2mmHgAVA (VMAX)3.88cm2 Mitral Valve MV E Bzffqqdf85.5cm/sMV E Peak Gr.5mmHg MV DECEL [id number] A Udquhauy29.7cm/s MV E Mean Gr.2mmHgE/A Ratio1.2 Pulmonary Valve PV Peak Tffgdwzi512.0cm/s Tricuspid Valve TR P. Kgkoparh890te/sTR Peak Gr.13mmHg Pulmonary Vein S1 Qnasaema61.4cm/sD2 Qyuwpsmj06.2cm/s LEFT VENTRICLE The Left Ventricle is mildly dilated. There is normal left ventricular wall thickness. The systolic f unction is moderately impaired. The Ejection Fraction is 30-35%. There is global hypokinesis of the l eft ventricle. Tissue Doppler imaging reveals abnormal left ventricular diastolic dysfunction. No lef t ventricle thrombus noted on this study. There is no ventricular septal defect visualized. There is no left ventricular aneurysm. There is no mass noted in the left ventricle. RIGHT VENTRICLE The right ventricle is normal size. There is normal right ventricular wall thickness. The right ventr icular systolic function is normal. ATRIA The left atrium is moderately dilated. The right atrium size is normal. The interatrial septum is int act with no evidence for an atrial septal defect or patent foramen ovale as noted on 2-D or Doppler i maging. AORTIC VALVE The aortic valve is normal in structure and function. Doppler and Color Flow revealed no significant aortic regurgitation. There is no significant aortic valvular stenosis. There is no aortic valvular v egetation. MITRAL VALVE The mitral valve is mildly thickened. There is no evidence of mitral valve prolapse. There is no mitr al valve stenosis. Doppler and Color-flow revealed moderate mitral regurgitation. TRICUSPID VALVE The tricuspid valve is normal in structure and function. Doppler and Color Flow revealed trace tricus pid regurgitation. There is no tricuspid valve prolapse or vegetation. There is no tricuspid valve st enosis. PULMONIC VALVE The pulmonary valve is normal in structure and function. Doppler and Color Flow revealed no pulmonic valvular regurgitation. There is no pulmonic valvular stenosis. GREAT VESSELS The aortic root is normal in size. The ascending aorta is normal in size. The pulmonary artery is nor mal. The IVC is normal in size and collapses >50% with inspiration. PERICARDIAL EFFUSION There is no pleural effusion. There is no evidence of significant pericardial effusion. Critical Notification Critical Value: No <Conclusion> The Left Ventricle is mildly dilated. The systolic function is moderately impaired. The Ejection Fraction is 30-35%. There is global hypokinesis of the left ventricle. Doppler and Color Flow revealed no significant aortic regurgitation. There is no significant aortic valvular stenosis. Doppler and Color-flow revealed moderate mitral regurgitation. Doppler and Color Flow revealed trace tricuspid regurgitation. Signed by : Malcolm Chambers MD Electronically Approved : 05/18/2021 18:29:05
== END ==
LOC: ECHO 10:48
PROVIDERS: ATTEND Internal Medicine Cardiovascular Disease
DX: I34.0 Nonrheumatic mitral (valve) insufficiency (principal); I51.7 Cardiomegaly; I51.9 Heart disease, unspecified; I25.10 Atherosclerotic heart disease of native coronary artery without angina pectoris
CPT/HCPCS: 93306

== ENCOUNTER 2021-06-06 08:16 | Observation (INO) | payer MEDICARE ==
[2021-06-06] VITALS (17 sets, daily range): BP systolic 112–145; BP diastolic 66–78
[~2021-06-06] VITALS: Ht 172.7 cm; Wt 96.4 kg
[2021-06-06] MEDS ORDERED: LIDOCAINE 1% Multi-Dose 20 ML VIAL. ONE (08:28)
[2021-06-06] MEDS ORDERED: IODIXANOL 320 MG/ML 100 ML VIAL. ONE ×2 (08:28→11:13)
[2021-06-06 09:16] LABS: GFR 73.9; POTASSIUM 3.5 mmol/L (3.5-5.1)
[2021-06-06 09:42] LABS: HEMATOCRIT 44.7 % (39.0-53.0); HEMOGLOBIN 15.7 g/dL (13.0-17.5); RED BLOOD COUNT 4.83 x10^6/uL (4.30-5.70); RED CELL DISTRIBUTION WIDTH 13.8 % (11.5-14.5); WHITE BLOOD COUNT 6.8 x10^3/uL (4.0-11.0)
[2021-06-06] MEDS ORDERED: fentaNYL PF VIAL 100 MCG/2 ML VIAL ONE (10:33)
[2021-06-06] MEDS ORDERED: MIDAZOLAM HCL/PF 2 MG/2 ML VIAL. ONE (10:33)
[2021-06-06] MEDS ORDERED: BIVALIRUDIN 250 MG VIAL. IV ONE ×2 (10:58→11:15)
[2021-06-06] MEDS ORDERED: fentaNYL PF VIAL 100 MCG/2 ML VIAL IV ONE (11:00)
[2021-06-06] MEDS ORDERED: MIDAZOLAM HCL/PF 2 MG/2 ML VIAL. IV ONE (11:00)
[2021-06-06] MEDS ORDERED: LIDOCAINE 1% Multi-Dose 20 ML VIAL. INJ ONE (11:00)
[2021-06-06] MEDS ORDERED: IODIXANOL 320 MG/ML 100 ML VIAL. IART ONE (11:00)
[2021-06-06] MEDS ORDERED: CARV25TA2 PO (11:12)
[2021-06-06] MEDS ORDERED: ENAL10TA11 PO (11:12)
[2021-06-06] MEDS ORDERED: IV NORMAL SALINE 500ML BAG 500 ML IV ONE (11:15)
[2021-06-06] MEDS ORDERED: NITROGLYCERIN 200 MCG/2 ML SYRINGE FOR CATH/VASC LAB. ICAR ONE (11:15)
[2021-06-06] MEDS ORDERED: NITROPRUSSIDE SODIUM 50 MG/2 ML VIAL IV ONE (11:19)
[2021-06-06] MEDS ORDERED: NITROGLYCERIN 200 MCG/2 ML SYRINGE FOR CATH/VASC LAB. ONE (11:23)
[2021-06-06] MEDS ORDERED: ASPIRIN 325 MG TABLET PO ONE (11:45)
[2021-06-06] MEDS ORDERED: NITROPRUSSIDE 100MCG/ML SYRINGE. INT CORON ONE (11:45)
[2021-06-06] MEDS ORDERED: CLOPIDOGREL BISULFATE 75 MG TABLET PO ONE (11:45)
--- NOTE | 2021-06-06 12:55 | PDOC ---
MODERATE SEDATION ASSESSMENT RISKS/ALTERNATIVES Risks/Alternatives Risks and alternatives of this type of sedation and procedure discussed with: RISK/ALTERNATIVES: Patient H & P ON CHART H & P H & P on chart and reviewed for co-morbid conditions and appropriate labs. H&P ON CHART: Yes STATUS PREG STATUS ASSESSED: N/A MEDS/ALLERGIES REVIEWED Meds/Allergies Reviewed Medications and Allergies including time and route of recently administered narcotics and sedatives. MEDS/ALLERGIES REVIEWED: Yes ASA RATING ASA RATING: II AIRWAY ASSESSMENT Airway Assessment Airway patency, oral function limitations, presence of caps, crowns, dentures, partials, and ability to extend neck assessed. AIRWAY ASSESSMENT: Yes MALLAMPATI SCORE MALLAMPATI SCORE: II PRE-SEDATION ASSESSMENT PRE-SEDATION ASSESSMENT: Yes RUBY KERR MD Jun 06, 2021 12:55
[2021-06-06] MEDS ORDERED: ACETAMINOPHEN 325 MG TABLET. PO PRN (13:00)
--- NOTE | 2021-06-06 13:58 | RAD ---
MR#: [id number] Date of Study: 06/06/2021 Ordering Physician: RUBY KERR, Referring Physician: RUBY KERR, Tech: Alexis Carlisle MBA, RDMS, RVT, RDCS, RTR APPROVED REPORT Patient Location: OUT-PATIENT Indications Rest Pain:Bilaterally VELOCITY AND DOPPLER WAVEFORM ANALYSIS RIGHT cm/secWaveformSeverity LEFT cm/secWaveform Severity dCFA 87.0TriphasicdCFA 103.0Triphasic Prof Fem Art. 39.0BiphasicProf Fem Art. 50.0Biphasic Fem Art Prox. 91.0BiphasicFem Art Prox. 88.0Triphasic Fem Art Mid. 92.0BiphasicFem Art Mid. 93.0Triphasic Fem Art Dist. 59.0BiphasicFem Art Dist. 60.0Triphasic Pop Art(Fossa) 49.0BiphasicPop Art(AK) 69.0Triphasic HOOP DRIVING MACHINE OPERATOR HELPER Prox. 50.0TriphasicPTA Prox. 84.0Triphasic HOOP DRIVING MACHINE OPERATOR HELPER Dist. 37.0MonophasicPTA Dist. 34.0Triphasic Per Art Mid. 47.0BiphasicPer Art Mid. 93.0Biphasic CAN Prox. 55.0MonophasicATA Prox. 39.0Triphasic DPA 57MonophasicDPA 81Triphasic Findings Grayscale images of the bilateral lower extremity arterial vessels demonstrate mild to moderate diffu se atherosclerosis. Spectral waveforms and color Doppler are mostly triphasic and biphasic without any clear evidence of significant stenosis. There is distal small vessel disease with monophasic waveforms in the distal p osterior tibial and anterior tibial vessels on the right side. Critical Notification Critical Value: No <Conclusion> 1. No significant lower extremity arterial disease bilaterally Signed by : Samir Butler, Electronically Approved : 06/06/2021 13:57:23
--- NOTE | 2021-06-06 14:06 | CARD ---
MR#: [id number] Date of Study: 06/06/2021 Ordering Physician: RUBY RICHARDSON, Referring Physician: RUBY RICHARDSON, Tech: RT Radhika(R) APPROVED REPORT Technologist: RT Radhika(R) Nurse: Aleyda Cast RN Procedure(s) performed: 1. Left heart catheterization, selective coronary angiography, selective ang iography of the bypass grafts 2. Successful PCI/drug-eluting stent placement to radial arterial graft to the diagonal branch 3. Successful Cutting Balloon angioplasty to in-stent restenosis involving the right coronary artery MODERATE SEDDATION TIME: 67 MINUTES FLUORO TIME: 16.6 MIN DOSE: 182 GYCM2 CONTRAST: 182CC VISI INDICATION The indication(s) include : Unstable angina, ischemic cardiomyopathy. [facility] Clinical Frailty Scale [facility] Clinical Frailty Scale: Moderately Frail Heart Failure Heart Failure: Yes If Yes, Newly Diagnosed: No If Yes, HF Type: Systolic If Yes, NYHA Class: Class II CASE TECHNIQUE IV conscious sedation was used throughout procedure with appropriate monitoring and was performed in the presence of a registered nurse who was an independent trained observer other than the physician p erforming the procedure. During this case, Fluoroscopy and low osmolar contrast were used for imaging . Specimen(s) Removed: No Estimated Blood loss: 15 cc's. PROCEDURE NARRATIVE After explaining the risk, benefits and alternative options, informed consent was obtained from patie nt. Patient was brought to the cardiac Flanging Machine Operator and his right groin was prepped and draped in the us ual fashion. 20 cc of 2% lidocaine was infiltrated into the skin and subcutaneous tissues for local anesthesia. Arterial access was obtained in the right common femoral artery and a 6 Argentine sheath wa s inserted. 6 Argentine JL4 6 Argentine JR4 catheters were used to perform selective angiography of the le ft and right coronary arteries. The 6 Argentine JR4 catheter was then used to perform selective angiogr aphy of the saphenous vein graft to the obtuse marginal branch, radial arterial graft to the diagonal branch and also the left internal mammary artery graft to the left anterior descending artery. LVED P and transaortic gradients were measured. The following findings were noted: FINDINGS 1. Hemodynamics: Left ventricular end-diastolic pressure 11 mmHg. No pullback gradient across the a ortic valve. 2. Coronary and bypass graft angiography: a. The left main coronary artery arose from the left sinus of Valsalva, gave rise to the left anteri or descending and left circumflex arteries and did not show any significant stenosis. b. The left anterior descending artery showed 90% stenosis in the proximal segment followed by 100% chronic total occlusion in the midsegment. c. The left circumflex artery showed 100% chronic total occlusion in the midsegment. d. The right coronary artery showed long stented proximal, mid and distal segments. There was 80% i n-stent restenosis noted in the midsegment and 50% in-stent restenosis in the distal segment. The po sterior descending branch showed 50% stenosis in the proximal segment. e. The left internal mammary artery graft to the left anterior descending artery was widely patent. Distal to the anastomosis, the [place] left anterior descending artery did not show any significant s tenosis. f. The radial arterial graft to the diagonal branch showed long 90% stenosis in the proximal segment . g. The saphenous vein graft to the obtuse marginal branch of left circumflex artery did not show any significant stenosis. INTERVENTION The radial arterial graft to the diagonal branch was engaged with a 6 Argentine JR4 guide catheter. The stenosis in the proximal segment was crossed with a 0.014 inch [email or web address] guidewire. This was d ilated with a 2.5 x 15 mm [employer] emerge balloon following which this was treated with a 2. 5 x 30 mm resolute Fernando drug-eluting stent. Patient was noted to have no flow phenomenon from distal embolization. This improved after two intracoronary injections of 200 mcg of nitroglycerin followed by 200 mcg of intracoronary nipride. Subsequently, the right coronary artery was engaged with the s isabel JR4 guide catheter and the in-stent restenosis in the midsegment crossed with the [employer] guidewire. This was dilated with a 2.5 x 10 mm [employer] following which this was dilated wi th a 3.0 x 12 mm [place] Euphora noncompliant balloon. Follow-up angiography showed resolution of this le gilbert with BARB-3 distal flow. Patient tolerated the procedure well. Hemostasis in the right groin w as achieved using Angio-Seal. There were no immediate complications. BARB Flow BARB Flow (Pre-Intervention): BARB-2 BARB Flow (Post-Intervention): BARB-3 BARB Flow BARB Flow (Pre-Intervention): BARB-3 BARB Flow (Post-Intervention): BARB-3 Conclusion 1. Severe [place] vessel coronary artery disease s/p coronary artery bypass surgery as described abov e with patent WILLIAM to LAD, patent SVG to OM/LCx, 90% stenosis involving the radial arterial graft to the diagonal branch and 80% in-stent restenosis involving the right coronary artery 2. Successful PCI/drug-eluting stent placement to the radial arterial graft to the diagonal branch a nd successful Cutting Balloon angioplasty to the right coronary artery Recommendations 1. Aspirin 325 mg daily for 1 month followed by 81 mg daily 2. Plavix 75 mg daily 3. Cardiovascular risk factor modification Signed by : Ruby Richardson, Electronically Approved : 06/06/2021 14:06:00
[2021-06-06] MEDS: IV 1/2 NORMAL SALINE 1,000 ML IV SCH (16:17)
[2021-06-06] MEDS ORDERED: LISINOPRIL 20 MG TABLET PO PRN (16:30)
[2021-06-06] MEDS: CARVEDILOL 12.5 MG TABLET. PO SCH (17:05)
[2021-06-06] MEDS ORDERED: ATORVASTATIN CALCIUM 10 MG TABLET. PO SCH (21:00)
[2021-06-07] MEDS: IV 1/2 NORMAL SALINE 1,000 ML IV SCH (02:20)
[2021-06-07 02:43] VITALS: BP 130/70
[2021-06-07 06:00] LABS: CALCIUM 8.1 mg/dL (8.5-10.1); CREATININE 0.9 mg/dL (0.7-1.3); GFR 83.4
[2021-06-07 07:00] VITALS: BP 156/74
[2021-06-07] MEDS: CARVEDILOL 12.5 MG TABLET. PO SCH (07:55)
[2021-06-07] MEDS ORDERED: ASPIRIN ENTERIC COATED 325 MG TABLET.DR. PO SCH (08:00)
[2021-06-07] MEDS ORDERED: CLOPIDOGREL BISULFATE 75 MG TABLET PO SCH (08:00)
[2021-06-07] MEDS ORDERED: hydroCHLOROthiazide 25 MG TABLET PO SCH (09:00)
[2021-06-07] MEDS ORDERED: HYDR-2145 PO (10:52)
[2021-06-07] MEDS ORDERED: ATOR40TA59 PO (10:52)
[2021-06-07] MEDS ORDERED: SACU1TAB PO (10:52)
[2021-06-07] MEDS ORDERED: CLOP75TA PO (10:52)
--- NOTE | 2021-06-07 10:53 | PDOC3 ---
MIGUEL KIMBALL CIGARETTE MAKING EXAMINER 06/07/21 1053: Discharge Summary Visit Information Date of Admission: Jun 06, 2021 Date of Discharge: Jun 07, 2021 Admitting Diagnosis: Unstable angina, CAD, Chronic systolic CHF, ICM, HTN,HLP Final Diagnosis Unstable angina, CAD, Chronic systolic CHF, ICM, HTN,HLP, S/P PCI, hypokalemia Brief Hospital Course Allergies Allergies Coded Allergies Type Severity Reaction Last Updated Verified No Known Drug Allergies 12/17/13 No Vital Signs Vital Signs Date Time Temp Pulse Resp B/P (MAP) Pulse Ox O2 Delivery O2 Flow Rate FiO2 06/07/21 08:00 Room Air 06/07/21 07:55 65 130/70 06/07/21 07:00 98.0 20 97 98.0 06/06/21 20:00 3.0 Lab Results Laboratory Tests Test 06/06/21 09:00 06/07/21 04:40 White Blood Count 6.8 x10^3/uL (4.0-11.0) Red Blood Count 4.83 x10^6/uL (4.30-5.70) Hemoglobin 15.7 g/dL (13.0-17.5) Hematocrit 44.7 % (39.0-53.0) Mean Corpuscular Volume 93 fL (79-100) Mean Corpuscular Hemoglobin 33 pg (25-35) Mean Corpuscular Hemoglobin Concent 35 g/dL (31-37) Red Cell Distribution Width 13.8 % (11.5-14.5) Platelet Count 245 x10^3/uL (140-400) Sodium Level 140 mmol/L (136-145) 141 mmol/L (136-145) Potassium Level 3.5 mmol/L (3.5-5.1) 3.0 mmol/L (3.5-5.1) Chloride Level 104 mmol/L (98-107) 104 mmol/L (98-107) Carbon Dioxide Level 30 mmol/L (21-32) 27 mmol/L (21-32) Anion Gap 6 (6-14) 10 (6-14) Blood Urea Nitrogen 18 mg/dL (8-26) 16 mg/dL (8-26) Creatinine 1.0 mg/dL (0.7-1.3) 0.9 mg/dL (0.7-1.3) Estimated GFR (Cockcroft-Gault) 73.9 83.4 Glucose Level 113 mg/dL (70-99) 103 mg/dL (70-99) Calcium Level 9.0 mg/dL (8.5-10.1) 8.1 mg/dL (8.5-10.1) Laboratory Tests Test 06/07/21 04:40 Sodium Level 141 mmol/L (136-145) Potassium Level 3.0 mmol/L (3.5-5.1) Chloride Level 104 mmol/L (98-107) Carbon Dioxide Level 27 mmol/L (21-32) Anion Gap 10 (6-14) Blood Urea Nitrogen 16 mg/dL (8-26) Creatinine 0.9 mg/dL (0.7-1.3) Estimated GFR (Cockcroft-Gault) 83.4 Glucose Level 103 mg/dL (70-99) Calcium Level 8.1 mg/dL (8.5-10.1) Brief Hospital Course Mr. Grande is a 71 yo male admitted for planned LHC. He has been having VOSS and features of unstable angina with prior hx of PCI and CABG. He is also sign ificant for ICM with recent EF of 30-35% via TTE. LHC revealed severe k[place] vessel coronary artery disease s/p coronary artery bypass surgery as described in report with patent WILLIAM to LAD, patent SVG to OM/LCx, 90% stenosis involving the radial arterial graft to the diagonal branch and 80% in-stent restenosis involving the right coronary artery. Successful PCI/drug-eluting stent placement to the radial arterial graft to the diagonal branch and successful Cutting Balloon angioplasty to the right coronary artery. He tolerated the procedure well. Denies any chest pain, SOA. AOx3, LSCTA, SR without significant ectopies. VSS. His potassium is mildly low and has been replaced. Right groin arteriotomy site intact without erythema or swelling. Neurovascular status to bilateral LE intact. Optimize HF medications and will reevaluate in 3 months for AICD consideration. DC to home follow up as scheduled. Discharge Information Condition at Discharge: Stable Follow Up: Weeks (5) Disposition/Orders: D/C to Home Scheduled Aspirin (Aspirin) 81 Mg Tab.chew, 1 TAB PO DAILY for HEART, #30 Ref 3 (Reported) Entered as Reported by: Freddie Terrazas on 06/07/21 1221 Aspirin (Aspirin) 325 Mg Tablet, 1 TAB PO DAILY for HEART, #30 Ref 5 (Reported) Entered as Reported by: Freddie Terrazas on 06/07/21 1221 Atorvastatin Calcium (Atorvastatin Calcium) 40 Mg Tablet, 1 TAB PO DAILY for CAD for 30 Days, #30 Ref 5 Prescribed by: MIGUEL KIMBALL on 06/07/21 1052 Carvedilol (Carvedilol) 25 Mg Tablet, 25 MG PO BIDWMEALS for CARDIAC, (Reported) Entered as Reported by: DB PRESSLEY on 06/06/21 111 Last Taken: Unknown Dose on 06/06/21 Last Action: Converted on 06/06/21 1610 by Freddie Terrazas Clopidogrel Bisulfate (Clopidogrel) 75 Mg Tablet, 75 MG PO DAILYWBKFT for CAD for 30 Days, #30 Ref 9 Prescribed by: MIGUEL KIMBALL on 06/07/21 1052 Hydrochlorothiazide (Hydrochlorothiazide Tablet ) 25 Mg Tablet, 12.5 MG PO DAILY for Hypertension, CHF for 30 Days, #15 Ref 3 Prescribed by: MIGUEL KIMBALL on 06/07/21 1052 Potassium Chloride (Klor-Con 10) 10 Meq Tablet.er, 1 TAB PO DAILY for REPLACEMENT for 30 Days, #30 Ref 0 (Reported) Entered as Reported by: Freddie Terrazas on 06/07/21 1135 Sacubitril/Valsartan (Entresto 24 mg-26 mg Tablet) 1 Each Tablet, 1 EACH PO BID for cardiomyopathy for 30 Days, #60 Ref 3 Prescribed by: MIGUEL KIMBALL on 06/07/21 1052 Discontinued Medications Enalapril Maleate (Enalapril Maleate) 10 Mg Tablet, 1 TAB PO BID PRN for rx, #30 Ref 5 (Reported) Entered as Reported by: DB PRESSLEY on 06/06/21 111 Last Taken: Unknown Dose on 06/06/21 Last Action: Converted on 06/06/21 1610 by Freddie Terrazas Lovastatin (Lovastatin) 40 Mg Tablet, 40 MG PO HS for rx, (Reported) Entered as Reported by: NEYMAR GOMES on 12/10/132051 Last Taken: Unknown Dose on 06/06/21 Last Action: Discontinued on 06/07/21 1032 by MIGUEL KIMBALL Patient Instructions Patient Instructions GENERAL INSTRUCTIONS: 1. Your dressing should be removed prior to leaving the hospital. 2. It is OK to shower the day after your procedure. 3. If you received stents, be sure to carry your stent information card with you in your wallet/purse at all times. 4. Call the office immediately at [phone] if you notice any fever or if there is redness, worsening tenderness/pain, increased bruising, or drainage from the puncture site. 5. Should you have bleeding from the site, lie down immediately & put pressure on the site. The pressure should be hard enough to stop the bleeding. Have the nearest person call 911. DO NOT try to drive to the ER with active bleeding. 6. If you notice a change in color, coolness to touch, or loss of feeling in the affected extremity, come to the emergency room. Please have someone drive you or call 911 if no one is available. DO NOT drive yourself. 7. If you normally take glucophage (metformin), please do not take this medicine for 48 hours following your procedure. 8. DO NOT STOP TAKING YOUR PLAVIX OR ASPIRIN UNLESS IT IS CLEARED BY A PBX REPAIRER OF YOUR ART CLASS MODEL AT OUR OFFICE. 9. QUIT SMOKING: the [place] [employer], [place] [employer], & [place] [employer] have cessation resources available on their websites 10. Please have someone available to drive you home from the hospital as you may be limited by sedation medications given during the procedure. Femoral (Groin) access: 1. Do no lifting, pushing, pulling, bending, stooping, or recurrent stair cl imbing for 3 days following your procedure. 2. Once past the first 3 days, do not do any HEAVY exertion or lifting for one week following the procedure. No gym workouts, running, lifting greater than a gallon of milk, etc 3. Do not submerge in bath or pool for one week. OK to drive 3 days following your procedure, but if going long distance, do not go alone & take hourly breaks to get out of car and walk around. Call the office at [phone] for any questions or concerns. Justicifation of Admission Dx: Justifications for Admission: Justification of Admission Dx: Yes RUBY KERR MD 06/07/21 5916: Discharge Summary Brief Hospital Course Brief Hospital Course Patient seen and examined. Agree with COMPRESS MACHINE OPERATOR's assessment and plan. Patient with known history of coronary artery disease s/p coronary artery bypass surgery underwent successful PCI/TRUDI to radial arterial graft to diagonal branch and Cutting Balloon angioplasty to the in-stent restenosis involving RCA successfully yesterday. He is presently chest pain-free. Telemetry did not show any significant arrhythmias. Continue current medical regimen and plan for repeat 2D echo in 3 months to evaluate the need for AICD implantation for primary prevention of sudden cardiac . Discharge Information Scheduled Aspirin (Aspirin) 81 Mg Tab.chew, 1 TAB PO DAILY for HEART, #30 Ref 3 (Reported) Entered as Reported by: Freddie eTrrazas on 06/07/21 1221 Aspirin (Aspirin) 325 Mg Tablet, 1 TAB PO DAILY for HEART, #30 Ref 5 (Reported) Entered as Reported by: Freddie Terrazas on 06/07/21 1221 Atorvastatin Calcium (Atorvastatin Calcium) 40 Mg Tablet, 1 TAB PO DAILY for CAD for 30 Days, #30 Ref 5 Prescribed by: MIGUEL KIMBALL on 06/07/21 1052 Carvedilol (Carvedilol) 25 Mg Tablet, 25 MG PO BIDWMEALS for CARDIAC, (Reported) Entered as Reported by: DB PRESSLEY on 06/06/21 1112 Last Taken: Unknown Dose on 06/06/21 Last Action: Converted on 06/06/21 1610 by Freddie Terrazas Clopidogrel Bisulfate (Clopidogrel) 75 Mg Tablet, 75 MG PO DAILYWBKFT for CAD for 30 Days, #30 Ref 9 Prescribed by: MIGUEL KIMBALL on 06/07/21 1052 Hydrochlorothiazide (Hydrochlorothiazide Tablet ) 25 Mg Tablet, 12.5 MG PO DAILY for Hypertension, CHF for 30 Days, #15 Ref 3 Prescribed by: MIGUEL KIMBALL on 06/07/21 1052 Potassium Chloride (Klor-Con 10) 10 Meq Tablet.er, 1 TAB PO DAILY for REPLACEMENT for 30 Days, #30 Ref 0 (Reported) Entered as Reported by: Freddie Terrazas on 06/07/21 1135 Sacubitril/Valsartan (Entresto 24 mg-26 mg Tablet) 1 Each Tablet, 1 EACH PO BID for cardiomyopathy for 30 Days, #60 Ref 3 Prescribed by: MIGUEL KIMBALL on 06/07/21 1052 Discontinued Medications Enalapril Maleate (Enalapril Maleate) 10 Mg Tablet, 1 TAB PO BID PRN for rx, #30 Ref 5 (Reported) Entered as Reported by: DB PRESSLEY on 06/06/21 1112 Last Taken: Unknown Dose on 06/06/21 Last Action: Converted on 06/06/21 1610 by Freddie Terrazas Lovastatin (Lovastatin) 40 Mg Tablet, 40 MG PO HS for rx, (Reported) Entered as Reported by: NEYMAR GOMES on 12/10/132051 Last Taken: Unknown Dose on 06/06/21 Last Action: Discontinued on 06/07/21 1032 by MIGUEL PARK APRN Jun 07, 2021 10:53 RUBY KERR MD Jun 07, 2021 17:25
[2021-06-07 11:00] VITALS: BP 129/69
[2021-06-07] MEDS ORDERED: POTASSIUM CHLORIDE 20 MEQ TABLET.ER. PO ONE (11:30)
[2021-06-07] MEDS ORDERED: POTA10TA12 PO (11:35)
[2021-06-07] MEDS ORDERED: ASPI-630 PO (12:21)
[2021-06-07] MEDS ORDERED: ASPI325T8 PO (12:21)
--- NOTE | 2021-06-07 13:06 | NUR ---
DISCHARGED PATIENT TO HOME. DISCHARGE INSTRUCTIONS GIVEN. PIV AND HEART MONITOR REMOVED. ESCORTED PATIENT OFF UNIT PER WHEELCHAIR INT A PRIVATE VEHICLE.
== END 2021-06-07 13:05 | disposition home or self-care (01) ==
LOC: CCL 08:16 → 6 SOUTH 14:00 → INTOOBSV 14:00
PROVIDERS: ADMIT Internal Medicine Cardiovascular Disease; ATTEND Internal Medicine Cardiovascular Disease
DX: I25.110 Atherosclerotic heart disease of native coronary artery with unstable angina pectoris (principal); I11.0 Hypertensive heart disease with heart failure; I50.22 Chronic systolic (congestive) heart failure; I25.5 Ischemic cardiomyopathy; E78.5 Hyperlipidemia, unspecified; T82.855A Stenosis of coronary artery stent, initial encounter; Y83.1 Surgical operation with implant of artificial internal device as the cause of abnormal reaction of the patient, or of later complication, without mention of misadventure at the time of the procedure; E87.6 Hypokalemia; Z95.1 Presence of aortocoronary bypass graft; Z87.891 Personal history of nicotine dependence; Z79.82 Long term (current) use of aspirin; Z98.61 Coronary angioplasty status
CPT/HCPCS: 36415; 80048; 85027; 92920; 92938; 93459; 93925; 96361; 96374; 96375; 99152; 99153; C1725; C1760; C1769; C1874; C1887; C1894; G0378; J0583; J1644; J2250; J3010; J3490; J7040; Q9967; G0379

== ENCOUNTER → 2021-10-23 | Outpatient (CLI) | payer MEDICARE ==
[~2021-10-23] MED LIST changes: +ASPI-630 PO; +ASPI325T8 PO; +ATOR40TA59 PO; +CARV25TA2 PO; +CLOP75TA PO; +ENAL10TA11 PO; +POTA10TA12 PO; +SACU1TAB PO
--- NOTE | 2021-10-23 14:15 | CARD ---
MR#: [id number] Date of Study: 10/23/2021 Ordering Physician: RUBY RICHARDSON, Referring Physician: RUBY RICHARDSON, Tech: Phylicia Stephens, [facility] APPROVED REPORT EXAM: Two-dimensional and M-mode echocardiogram with Doppler and color Doppler. Other Information Quality : FairHR: 68bpm INDICATION Cardiomyopathy RISK FACTORS Hypertension Hyperlipidemia 2D DIMENSIONS Left Atrium(2D)3.7 (1.6-4.0cm)IVSd1.0 (0.7-1.1cm) Aortic Root(2D)3.4 (2.0-3.7cm)LVDd5.8 (3.9-5.9cm) LVOT Diameter2.1 (1.8-2.4cm)PWd1.0 (0.7-1.1cm) LVDs4.7 (2.5-4.0cm)FS (%) 19.3 % SV64.7 mlLVEF(%)39.1 (>50%) Aortic Valve AoV Peak Valentín.95.8cm/sAoV VTI18.5cm AO Peak GR.3.7mmHgLVOT Peak Valentín.71.4cm/s LVOT VTI 14.73cmAO Mean GR.2mmHg ARSALAN (VMAX)1.33cs8CZY (VTI)2.71cm2 Mitral Valve MV E Idnquamn64.2cm/sMV DECEL BKCO940vv MV A Wrhdwaql50.1cm/sMV E Mean Gr.1mmHg MV QTB94tuK/A Ratio0.6 MVA (PHT)3.42cm2 TDI E/Lateral E'8.0E/Medial E'8.8 Tricuspid Valve TR P. Pnejhlzy156wq/sRAP VRGVYNDU3xdTy TR Peak Gr.44dfPfOYJX20puLs Pulmonary Vein PVa enulqbgu56xufs LEFT VENTRICLE The Left Ventricle is mildly dilated. There is mild concentric left ventricular hypertrophy. The left ventricular systolic function is moderately impaired. The Ejection Fraction is 30-35%. There is glob al hypokinesis of the left ventricle. Transmitral Doppler flow pattern is Grade I-abnormal relaxation pattern. RIGHT VENTRICLE The right ventricle is normal size. There is normal right ventricular wall thickness. The right ventr icular systolic function is normal. ATRIA The left atrium size is normal. The right atrium size is normal. The interatrial septum is intact wit h no evidence for an atrial septal defect or patent foramen ovale as noted on 2-D or Doppler imaging. AORTIC VALVE The aortic valve is normal in structure and function. Doppler and Color Flow revealed trace aortic re gurgitation. There is no significant aortic valvular stenosis. Calculated aortic valve area is 2.10 c m2 with maximum pressure gradient of 6 mmHg and mean pressure gradient of 4 mmHg. MITRAL VALVE The mitral valve is normal in structure and function. There is no evidence of mitral valve prolapse. There is no mitral valve stenosis. Doppler and Color-flow revealed trace mitral regurgitation. TRICUSPID VALVE The tricuspid valve is normal in structure and function. Doppler and Color Flow revealed trace tricus pid regurgitation with an estimated PAP of 20 mmHg. There is no tricuspid valve stenosis. PULMONIC VALVE The pulmonary valve is normal in structure and function. Doppler and Color Flow revealed trace pulmon ic valvular regurgitation. GREAT VESSELS The aortic root is normal in size. The IVC is normal in size and collapses >50% with inspiration. PERICARDIAL EFFUSION There is no evidence of significant pericardial effusion. Critical Notification Critical Value: No <Conclusion> The left ventricular systolic function is moderately impaired. The Ejection Fraction is 30-35%. Transmitral Doppler flow pattern is Grade I-abnormal relaxation pattern. Trace mitral regurgitation. Trace tricuspid regurgitation with an estimated PAP of 20 mmHg. There is no evidence of significant pericardial effusion. Signed by : Ruby Richardson, Electronically Approved : 10/23/2021 14:14:55
== END ==
LOC: ECHO 09:38
PROVIDERS: ATTEND Internal Medicine Cardiovascular Disease
DX: I51.89 Other ill-defined heart diseases (principal); I51.7 Cardiomegaly; I25.5 Ischemic cardiomyopathy
CPT/HCPCS: 93306

== ENCOUNTER 2021-11-10 10:48 | Observation (INO) | payer MEDICARE ==
[~2021-11-10] VITALS: Ht 172.7 cm; Wt 95.2 kg
[~2021-11-10 10:48] MED LIST changes: +HYDROmorphone 2 MG/ML INJ. IVP PRN; +IV RINGERS,LACTATED 1000ML 1,000 ML IV SCH; +LIDOCAINE 2%/EPI 1:100,000 20 ML VIAL. ONE; +MORPHINE SULFATE 2 MG/ML INJ. IVP PRN; +PROCHLORPERAZINE 10 MG/2 ML VIAL. IVP PRN; +fentaNYL PF VIAL 100 MCG/2 ML VIAL IVP PRN
[2021-11-10 11:27] LABS: HEMATOCRIT 46.7 % (39.0-53.0); HEMOGLOBIN 16.4 g/dL (13.0-17.5); RED BLOOD COUNT 5.12 x10^6/uL (4.30-5.70); RED CELL DISTRIBUTION WIDTH 13.8 % (11.5-14.5); WHITE BLOOD COUNT 7.6 x10^3/uL (4.0-11.0)
[2021-11-10 11:38] LABS: CALCIUM 8.4 mg/dL (8.5-10.1); CREATININE 0.9 mg/dL (0.7-1.3); GFR 83.4; POTASSIUM 3.8 mmol/L (3.5-5.1)
[2021-11-10 11:39] LABS: PROTHROMBIN TIME PATIENT 12.2 SEC (11.7-14.0)
[2021-11-10 11:42] VITALS: BP 153/100
[2021-11-10] MEDS ORDERED: CARV25TA2 PO (11:50)
[2021-11-10] MEDS ORDERED: PROPOFOL 100 ML IV ONE (12:21)
[2021-11-10] MEDS ORDERED: PHENYLEPHRINE in 0.9% NACL PF 1 MG/10 ML SYRINGE. IV ONE (12:36)
[2021-11-10] MEDS ORDERED: ceFAZolin SODIUM 1 GM in IV NORMAL SALINE 100ML 100 ML IRR ONE (13:00)
[2021-11-10] MEDS ORDERED: fentaNYL PF VIAL 100 MCG/2 ML VIAL ONE (13:10)
[2021-11-10] MEDS ORDERED: KETAMINE HCL IN NACL, ISO-OSM 50 MG/5 ML SYRINGE ONE (13:10)
[2021-11-10] MEDS ORDERED: LIDOCAINE 2%/EPI 1:100,000 20 ML VIAL. IJ ONE (13:15)
[2021-11-10] MEDS ORDERED: IODIXANOL 320 MG/ML 100 ML VIAL. ONE (13:41)
[2021-11-10] MEDS ORDERED: IODIXANOL 320 MG/ML 100 ML VIAL. IV ONE (13:45)
[2021-11-10] MEDS ORDERED: CONTRAST GIVEN. MC PRN (14:00)
--- NOTE | 2021-11-10 14:40 | CARD ---
MR#: [id number] Date of Study: 11/10/2021 Ordering Physician: BRADLEY RICHARDSON, Referring Physician: BRADLEY RICHARDSON, Tech: APPROVED REPORT EXAM Implantation of Biotronik automated implantable cardioverter defibrillator Defibrillation thresholds measurement at the time of implantation SEDATION ADMINISTERED BY ANASTHESIA FLUORO TIME: 5.8 MIN DOSE: 20.4 GYCM2 CONTRAST: 19CC VISI INDICATIONS Primary prevention of sudden cardiac in a patient with ischemic cardiomyopathy, chronic systoli c heart failure with LVEF 30 to 35% PROCEDURE After explaining the risks, benefits, and alternative options, informed consent was obtained from the patient. The patient was brought to the cardiac catheterization lab and the left chest and shoulder were prepp ed and draped in the usual fashion. IV conscious sedation was used throughout procedure with appropriate monitoring and was performed in the presence of a registered nurse who was an independent trained observer other than the physician p erforming the procedure. Specimen(s) Removed: No Estimated Blood loss: 10 cc's. 30 cc of 2% lidocaine was infiltrated into the skin and subcutaneous tissues for local anesthesia. A n incision was made over the left infraclavicular fossa and using blunt dissection and cautery, a poc ket was created. After initial attempts at obtaining venous access using fluoroscopic guidance were unsuccessful, contrast injections were performed through peripheral IV for subclavian venography and access was successfully obtained and 9 Sinhala sheath was inserted. A Biotronik bipolar active-fixation right ventricular lead with atrial dipole model Plexa ProMRI SDX 65/15, serial #[id number] was advanced under fluoroscopic guidance and the tip was positioned in the ri t ventricular apex. The lead was secured in place and was attached to a Biotronik AICD generator m francisco Acticor 7 VR-T DX, serial #[id number]. This was placed in the pocket that was subsequently closed in 3 layers. Hemostasis was secured with the help of D-stat. Ventricular fibrillation was then induced to check the defibrillation thresholds. Patient successful ly converted to sinus rhythm with 15 J shock therapy with a shock impedance of 54 ohms. The right ve ntricular lead showed a sensing amplitude of 10 mV, impedance of 780 ohms and a threshold of 0.4 V. The atrial dipole showed a sensing amplitude for P wave of 6.0 mV. Patient tolerated the procedure w ell. There were no immediate complications. CONCLUSION Successful implantation of Biotronik automated implantable cardioverter defibrillator for primary pre vention of sudden cardiac in a patient with ischemic cardiomyopathy/chronic systolic heart fail ure. Defibrillation thresholds were measured at the time of implantation. Signed by : Bradley Richardson, Electronically Approved : 11/10/2021 14:40:16
[2021-11-10 15:00] VITALS: BP 122/96
--- NOTE | 2021-11-10 15:03 | RAD ---
EXAM: Chest, single view. HISTORY: Pacemaker placement. COMPARISON: None. FINDINGS: A frontal view of the chest is obtained. There is a left cardiac pacemaker defibrillator wi th lead in expected position. There is no consolidation, pleural effusion or pneumothorax. There is a prominent cardiac silhouette and evidence of prior CABG. IMPRESSION: Cardiac pacemaker similar overlying expected position. Electronically signed by: Claudia Petersen MD (11/10/2021 3:00 PM) [id number]
[2021-11-10] MEDS ORDERED: ACETAMINOPHEN 325 MG TABLET. PO PRN (16:30)
[2021-11-10 19:19] VITALS: BP 156/82
[2021-11-10] MEDS: oxyCODONE/APAP 5/325 1 TAB TABLET PO PRN (21:22)
[2021-11-10 22:36] VITALS: BP 145/82
[2021-11-11 02:23] VITALS: BP 137/73
[2021-11-11] MEDS: oxyCODONE/APAP 5/325 1 TAB TABLET PO PRN ×2 (06:04→13:50)
[2021-11-11 07:00] VITALS: BP 175/89
[2021-11-11] MEDS ORDERED: CLOPIDOGREL BISULFATE 75 MG TABLET PO SCH (08:00)
[2021-11-11] MEDS ORDERED: CARVEDILOL 6.25 MG TABLET. PO SCH (08:00)
[2021-11-11] MEDS ORDERED: hydroCHLOROthiazide 12.5 MG CAPSULE PO SCH (09:00)
[2021-11-11] MEDS ORDERED: POTASSIUM CHLORIDE 10 MEQ TABLET.ER. PO SCH (09:00)
[2021-11-11] MEDS ORDERED: SACUBITRIL/VALSARTAN 24/26MG TABLET. PO SCH (09:00)
[2021-11-11] MEDS ORDERED: ASPIRIN 325 MG TABLET PO SCH (09:00)
--- NOTE | 2021-11-11 10:47 | RAD ---
EXAM: Chest, 2 views. HISTORY: Pacemaker placement. COMPARISON: 11/10/2021 FINDINGS: 2 views of the chest are obtained. There is a single lead left cardiac pacemaker defibrilla tor in expected vision. There is evidence of prior CABG. There is a stable cardiac silhouette. There are chronic interstitial changes. There is no pleural effusion or pneumothorax. IMPRESSION: Single lead left cardiac pacemaker defibrillator in expected position. Electronically signed by: Claudia Petersen MD (11/11/2021 10:44 AM) [facility]
[2021-11-11 11:00] VITALS: BP 148/85
[2021-11-11] MEDS ORDERED: OXYC1TAB15 PO (13:48)
--- NOTE | 2021-11-11 13:53 | PDOC3 ---
DISCHARGE SUMMARY DISCHARGE SUMMARY: Date of discharge: 11/11/2021 Discharge diagnosis: 1. Ischemic cardiomyopathy 2. Hypertension 3. Dyslipidemia 4. Coronary artery disease Hospital course: 71-year-old male with past medical history as noted above who presented to the hospital for placement of a defibrillator for primary prevention. He underwent placement of a left-sided Biotronik ICD. The patient tolerated the procedure well. On the day of discharge the patient denies any specific angina, dyspnea, orthopnea or PND. He had some incisional pain. Examination of the site revealed no evidence of hematoma. Mild ecchymoses with a well approximated wound was noted. Vital signs were stable. Chest x-ray was unremarkable. Device interrogation was unremarkable. Patient was instructed on discharge instructions for care of the wound. He was discharged in stable condition. Discharge medications: Aspirin 325 mg daily Plavix 75 g daily Toprol-XL 50 mg daily Entresto 49/51 mg twice daily Hydrochlorothiazide 25 g daily Potassium 10 mEq daily Percocet 5/325, 1 tablet every 6 hours as needed, dispensed 10 Disposition: To home Follow-up: [address] to [address] Richardson for wound check. Justicifation of Admission Dx: Justifications for Admission: Justification of Admission Dx: Yes ANA GODFREY MD Nov 11, 2021 13:53
--- NOTE | 2021-11-11 14:45 | NUR ---
DISCHARGED PATIENT TO HOME. DISCHARGE INSTRUCTIONS GIVEN. PIV AND HEART MONITOR REMOVED. ESCORTED PATIENT OFF UNIT PER WHEEL CHAIR INTO A PRIVATE VEHICLE.
[2021-11-11] MEDS ORDERED: ATORVASTATIN CALCIUM 40 MG TABLET. PO SCH (21:00)
== END 2021-11-11 14:45 | disposition home or self-care (01) ==
LOC: SURG 10:48 → 6 SOUTH 12:44
PROVIDERS: ADMIT Internal Medicine Cardiovascular Disease; ATTEND Internal Medicine Cardiovascular Disease
DX: I25.5 Ischemic cardiomyopathy (principal); I11.0 Hypertensive heart disease with heart failure; I50.42 Chronic combined systolic (congestive) and diastolic (congestive) heart failure; I25.10 Atherosclerotic heart disease of native coronary artery without angina pectoris; E78.5 Hyperlipidemia, unspecified; Z51.81 Encounter for therapeutic drug level monitoring; Z79.899 Other long term (current) drug therapy; Z98.890 Other specified postprocedural states
CPT/HCPCS: 33249; 36415; 71045; 71046; 75820; 80048; 85027; 85610; 93640; 96361; 96365; C1721; C1894; G0378; G0379; J0690; J2370; J2704; J3490; J7120; Q9967; A4223; J3010